=== PATIENT | female | born 1970 | race American Indian/Alaskan Native ===

== ENCOUNTER 2018-10-13 12:34 | Inpatient (IN) | payer MEDICAID, OTHER ==
[2018-10-13] MEDS ORDERED: NACL 0.9% 1000 ML 1,000 ML IV ONE (14:02)
[2018-10-13] MEDS ORDERED: SUBLIMAZE IV ONE ×2 (14:02→18:55)
[2018-10-13] MEDS ORDERED: ZOFRAN IV ONE (14:02)
--- NOTE | 2018-10-13 14:04 | Emergency Department Report ---
ED General Adult HPI - General Chief complaint: Abdominal Pain Stated complaint: STOMACH/BACK PAIN/VOMITING Time Seen by Provider: 10/13/18 13:49 Source: patient, RN notes reviewed Mode of arrival: Ambulatory Limitations: No Limitations - History of Present Illness Initial comments: This is a 48-year-old female who is not known to this provider previously, but does not have a local primary care doctor, reports that she is not . Surgical history includes right sided inguinal hernia repair, 25 years ago, and bilateral tubal ligation. The patient denies DVT, pulmonary embolus risk factors. The patient presents today with a complaint of nontraumatic bilateral abdominal upper quadrant abdominal pain, with associated back pain, nausea, vomiting, fatigue, decreased stool caliber, chest tightness, intermittent shortness of breath, present since 5:30 in the morning. Symptoms constant, radiating to the back, increasing with palpation, decreased with rest. Denies fevers, chills, positive lethargy, positive generalized weakness, denies irritative, obstructive urinary symptoms. Chest discomfort as subxiphoid, epigastric, does not radiate anywhere. No recent cardiac risk stratification that she is aware of. Positive family history of heart disease, CHF and her father. No recent aspirin use or cocaine use. -: Gradual Location: chest, abdomen Radiation: back Quality: other Consistency: other Improves with: other Worsens with: other Associated Symptoms: chest pain, loss of appetite, malaise, nausea/vomiting, weakness, other (reports multiple episodes of nausea, vomiting). denies: confusion, cough, diaphoresis, fever/chills, headaches, rash, seizure, shortness of breath, syncope - Related Data Allergies Allergy/AdvReac Type Severity Reaction Status Date / Time Penicillins Allergy Unknown Verified 10/13/18 12:44 ED Review of Systems ROS: Stated complaint: STOMACH/BACK PAIN/VOMITING Other details as noted in HPI Constitutional: malaise, other. denies: fever Eyes: denies: eye discharge ENT: denies: epistaxis Respiratory: denies: cough Cardiovascular: chest pain Gastrointestinal: abdominal pain, nausea, vomiting Genitourinary: denies: dysuria Musculoskeletal: denies: joint swelling Skin: denies: lesions Neurological: weakness Psychiatric: anxiety ED Past Medical Hx - Past Medical History Previous Medical History?: Yes Additional medical history: MVP - Surgical History Past Surgical History?: Yes Additional Surgical History: RIGHT INGUINAL HERNIA, TUBILIGATION - Social History Smoking Status: Never Smoker Substance Use Type: None ED Physical Exam - General Limitations: No Limitations General appearance: alert, anxious, in distress, obese - Head Head exam: Present: atraumatic, normocephalic - Eye Eye exam: Present: normal appearance, EOMI. Absent: nystagmus - ENT ENT exam: Present: normal exam, normal orophraynx, mucous membranes moist, normal external ear exam - Neck Neck exam: Present: normal inspection, full ROM. Absent: tenderness, meningismus - Respiratory Respiratory exam: Present: decreased breath sounds. Absent: respiratory distress, wheezes, rales, rhonchi, stridor - Cardiovascular Cardiovascular Exam: Present: normal rhythm, bradycardia, normal heart sounds. Absent: tachycardia, irregular rhythm, systolic murmur, diastolic murmur, rubs, gallop - GI/Abdominal GI/Abdominal exam: Present: soft, tenderness. Absent: distended, guarding, rebo und, rigid, pulsatile mass - Extremities Exam Extremities exam: Present: normal inspection, full ROM, other (2+ pulses noted in the bilateral upper extremities. There is no long bony tenderness. The compartments are soft. There is no palpable cord. There is negative Homans sign.). Absent: pedal edema, calf tenderness - Back Exam Back exam: Present: normal inspection, full ROM. Absent: tenderness, CVA tenderness (R), paraspinal tenderness, vertebral tenderness - Neurological Exam Neurological exam: Present: alert, oriented X3, normal gait, other (Extraocular movements intact. Tongue midline. No facial droop. Facial sensation intact to light touch in the V1, V2, V3 distribution bilaterally. 5 and 5 strength in 4 extremities.. Sensation is intact to light touch in 4 extremities.). Absent: motor sensory deficit - Psychiatric Psychiatric exam: Present: normal affect, normal mood - Skin Skin exam: Present: warm, dry, intact, normal color. Absent: rash ED Course Vital Signs 10/13/18 12:39 Temperature 97.8 F Pulse Rate 68 Respiratory 18 Rate Blood Pressure 165/90 O2 Sat by Pulse 100 Oximetry - Reevaluation(s) Reevaluation #1: 10/13/18 14:23 Differential diagnosis, including not limited to: GERD, gastritis, hiatal hernia, bowel obstruction, ileus, volvulus, acute coronary syndrome, pulmonary embolus, aortic disease, Assessment and plan: 48-year-old female with a primary complaint of upper abdominal pain, on oppose nausea and vomiting, subsequent chest discomfort, back discomfort, with reports no pulmonary embolus or DVT risk factors, with abnormal EKG. Patient is afebrile with reassuring vital signs, and appears uncomfortable. We will obtain appropriate screening laboratory studies, treat her symptoms, obtained CT scan of the chest, abdomen, pelvis, and we will reassess after initial data points. Reevaluation #2: 10/13/18 16:05 Laboratory studies reviewed and are appreciated. CT scan interpretation and performance pending. Reevaluation #3: 10/13/18 17:31 CT scan of the chest is negative for acute disease. CT scan of the abdomen and pelvis is pending interpretation. Reevaluation #4: 10/13/18 18:59 CT scan shows appendicitis without rupture. The patient endorses that the nature of her pain has changed, and that is now sharp and right-sided. She is asking for additional pain medication and nausea medication. She has no true allergic reaction to penicillins, only endorses that occasionally, and amoxicillin tablets are occasionally to "chalky" for her, which will cause her to gag, but she does not endorse true anaphylactic or anaphylactoid reaction to penicillins. She will be covered empirically with meropenem. Gen. surgery consult has been requested. Hospital physician has been paged. Reevaluation #5: 10/13/18 19:04 Dr Morton will see the patient; request patient remained in the emergency room, and he will call the OR crew. - Consultations Consultation #1: 10/13/18 19:18 Dr Hansen to admit - EJ/Peripheral Line Neck L Time Out Performed: Yes Indications: nurses unable to establis Skin Cleansed in Sterile Fashion: Yes Size: 20 Dressing Placed: Tegaderm Patient Tolerated Procedure: well ED Medical Decision Making - Lab Data Result diagrams: 10/13/18 14:38 10/13/18 14:38 Vital Signs 10/13/18 12:39 Temperature 97.8 F Pulse Rate 68 Respiratory 18 Rate Blood Pressure 165/90 O2 Sat by Pulse 100 Oximetry Lab Results 10/13/18 10/13/18 10/13/18 Range/Units 13:49 14:38 14:38 WBC 7.3 (4.5-11.0) K/mm3 RBC 4.33 (3.65-5.03) M/mm3 Hgb 12.7 (10.1-14.3) gm/dl Hct 38.3 (30.3-42.9) % MCV 89 (79-97) fl MCH 29 (28-32) pg MCHC 33 (30-34) % RDW 15.4 H (13.2-15.2) % Plt Count 195 (140-440) K/mm3 Lymph % (Auto) 10.8 L (13.4-35.0) % Mora % (Auto) 1.6 (0.0-7.3) % Eos % (Auto) 0.0 (0.0-4.3) % Baso % (Auto) 0.3 (0.0-1.8) % Lymph # 0.8 L (1.2-5.4) K/mm3 Mora # 0.1 (0.0-0.8) K/mm3 Eos # 0.0 (0.0-0.4) K/mm3 Baso # 0.0 (0.0-0.1) K/mm3 Seg Neutrophils % 87.3 H (40.0-70.0) % Seg Neutrophils # 6.4 (1.8-7.7) K/mm3 PT 13.2 (12.2-14.9) Sec. INR 0.96 (0.87-1.13) APTT 24.4 (24.2-36.6) Sec. Sodium (137-145) mmol/L Potassium (3.6-5.0) mmol/L Chloride (98-107) mmol/L Carbon Dioxide (22-30) mmol/L Anion Gap mmol/L BUN (7-17) mg/dL Creatinine (0.7-1.2) mg/dL Estimated GFR ml/min BUN/Creatinine Ratio % Glucose (65-100) mg/dL Calcium (8.4-10.2) mg/dL Magnesium (1.7-2.3) mg/dL Total Bilirubin (0.1-1.2) mg/dL AST (5-40) units/L ALT (7-56) units/L Alkaline Phosphatase (35-129) units/L Total Creatine Kinase (30-135) units/L Troponin T (0.00-0.029) ng/mL Total Protein (6.3-8.2) g/dL Albumin (3.9-5) g/dL Albumin/Globulin Ratio % Lipase (13-60) units/L HCG, Quant (0-4) mIU/mL Urine Color Yellow (Yellow) Urine Turbidity Clear (Clear) Urine pH 8.0 H (5.0-7.0) Ur Specific Loco 1.016 (1.003-1.030) Urine Protein 30 mg/dl (Negative) mg/dL Urine Glucose (UA) 50 (Negative) mg/dL Urine Ketones Neg (Negative) mg/dL Urine Blood Sm (Negative) Urine Nitrite Neg (Negative) Urine Bilirubin Neg (Negative) Urine Urobilinogen < 2.0 (<2.0) mg/dL Ur Leukocyte Esterase Tr (Negative) Urine WBC (Auto) 2.0 (0.0-6.0) /HPF Urine RBC (Auto) 11.0 (0.0-6.0) /HPF U Epithel Cells (Auto) 1.0 (0-13.0) /HPF Urine Bacteria (Auto) 2+ (Negative) /HPF Urine Mucus Few /HPF Blood Type Antibody Screen 10/13/18 10/13/18 10/13/18 Range/Units 14:38 14:38 14:38 WBC (4.5-11.0) K/mm3 RBC (3.65-5.03) M/mm3 Hgb (10.1-14.3) gm/dl Hct (30.3-42.9) % MCV (79-97) fl MCH (28-32) pg MCHC (30-34) % RDW (13.2-15.2) % Plt Count (140-440) K/mm3 Lymph % (Auto) (13.4-35.0) % Mora % (Auto) (0.0-7.3) % Eos % (Auto) (0.0-4.3) % Baso % (Auto) (0.0-1.8) % Lymph # (1.2-5.4) K/mm3 Mora # (0.0-0.8) K/mm3 Eos # (0.0-0.4) K/mm3 Baso # (0.0-0.1) K/mm3 Seg Neutrophils % (40.0-70.0) % Seg Neutrophils # (1.8-7.7) K/mm3 PT (12.2-14.9) Sec. INR (0.87-1.13) APTT (24.2-36.6) Sec. Sodium 139 (137-145) mmol/L Potassium 4.0 (3.6-5.0) mmol/L Chloride 102.4 (98-107) mmol/L Carbon Dioxide 24 (22-30) mmol/L Anion Gap 17 mmol/L BUN 8 (7-17) mg/dL Creatinine 0.9 (0.7-1.2) mg/dL Estimated GFR > 60 ml/min BUN/Creatinine Ratio 9 % Glucose 145 H (65-100) mg/dL Calcium 9.3 (8.4-10.2) mg/dL Magnesium 2.00 (1.7-2.3) mg/dL Total Bilirubin 0.40 (0.1-1.2) mg/dL AST 18 (5-40) units/L ALT 13 (7-56) units/L Alkaline Phosphatase 91 (35-129) units/L Total Creatine Kinase 235 H (30-135) units/L Troponin T < 0.010 (0.00-0.029) ng/mL Total Protein 7.9 (6.3-8.2) g/dL Albumin 4.5 (3.9-5) g/dL Albumin/Globulin Ratio 1.3 % Lipase 13 (13-60) units/L HCG, Quant 3.30 (0-4) mIU/mL Urine Color (Yellow) Urine Turbidity (Clear) Urine pH (5.0-7.0) Ur Specific Loco (1.003-1.030) Urine Protein (Negative) mg/dL Urine Glucose (UA) (Negative) mg/dL Urine Ketones (Negative) mg/dL Urine Blood (Negative) Urine Nitrite (Negative) Urine Bilirubin (Negative) Urine Urobilinogen (<2.0) mg/dL Ur Leukocyte Esterase (Negative) Urine WBC (Auto) (0.0-6.0) /HPF Urine RBC (Auto) (0.0-6.0) /HPF U Epithel Cells (Auto) (0-13.0) /HPF Urine Bacteria (Auto) (Negative) /HPF Urine Mucus /HPF Blood Type O POSITIVE Antibody Screen Negative - EKG Data -: EKG Interpreted by Me EKG shows normal: sinus rhythm Rate: bradycardia - EKG Data When compared to previous EKG there are: previous EKG unavailable 10/13/18 14:24 Bradycardia, 51 bpm, borderline left axis deviation, QTC within normal limits, right bundle branch block noted, abnormal EKG, T wave abnormalities, not consistent with ST elevation myocardial infarction. There is no prior EKG available for comparison. - Radiology Data Radiology results: pending Critical care attestation.: If time is entered above; I have spent that time in minutes in the direct care of this critically ill patient, excluding procedure time. ED Disposition Clinical Impression: Acute appendicitis Qualifiers: Acute appendicitis type: unspecified acute appendicitis type Qualified Code(s): K35.80 - Unspecified acute appendicitis Disposition: OP ADMIT IP TO THIS HOSP Is pt being admited?: Yes Condition: Good Instructions: Abdominal Pain (ED) Referrals: PRIMARY CARE, [Primary Care Provider] - 3-5 Days
[2018-10-13 14:18] LABS: Bacteria,Urine 2+ /HPF (Negative); Bilirubin,Urine NEG (Negative); Blood,Urine SM (Negative); Color,Urine Yellow (Yellow); Mucus,Urine FEW /HPF; Urobilinogen,Urine < 2.0 mg/dL (<2.0)
[2018-10-13] MEDS ORDERED: PEPCID IV ONE (14:24)
[2018-10-13 14:52] LABS: Basophils % (Auto) 0.3 % (0.0-1.8); Hematocrit 38.3 % (30.3-42.9); Hemoglobin 12.7 gm/dl (10.1-14.3); Lymphocytes # (Auto) 0.8 K/mm3 (1.2-5.4); Lymphocytes % (Auto) 10.8 % (13.4-35.0); Mean Corpuscular HGB Conc 33 % (30-34); Mean Corpuscular Volume 89 fl (79-97); Monocytes # (Auto) 0.1 K/mm3 (0.0-0.8); Monocytes % (Auto) 1.6 % (0.0-7.3); Platelet Count 195 K/mm3 (140-440); Red Blood Count 4.33 M/mm3 (3.65-5.03); Red Cell Distribution Width 15.4 % (13.2-15.2)
--- NOTE | 2018-10-13 14:52 | XRay Report ---
ABDOMINAL SERIES: History: Chest pain, abdominal pain, shortness of breath. Erect chest film shows no acute or significant changes involving the heart or lung vergara. There is no evidence of free air beneath the diaphragms. The gas pattern within the abdomen is unremarkable. There is no evidence of bowel dilatation, significant air-fluid levels, or masses. Organ shadows are unremarkable. IMPRESSION: Abdominal series within normal limits.
[2018-10-13 15:02] LABS: INR 0.96 (0.87-1.13)
[2018-10-13 15:03] LABS: Partial Thromboplastin Time 24.4 Sec. (24.2-36.6)
[2018-10-13 15:17] LABS: Alanine Aminotransferase 13 units/L (7-56); Albumin 4.5 g/dL (3.9-5); BUN/Creatinine Ratio 9; Blood Urea Nitrogen 8 mg/dL (7-17); Calcium 9.3 mg/dL (8.4-10.2); Hemolysis Index 26
--- NOTE | 2018-10-13 17:29 | Cat Scan Report ---
FINAL REPORT EXAM: CT ANGIO CHEST HISTORY: chest pain, abdominal pain, shortness of breath TECHNIQUE: Following administration of IV contrast axial helical imaging was performed through the c hest with sagittal and coronal reformatted images obtained. Comparison: None FINDINGS: There is no evidence of infiltrate, pneumothorax or pleural fluid collection. The trachea and bronchi are patent. The heart appears to be enlarged. The thoracic aorta is normal caliber. There is no evidence of intrathoracic adenopathy. The visualized portion the upper abdomen is unremarkable. The bony structures are unremarkable. IMPRESSION: 1. No evidence of an acute intrathoracic process. 2. The heart appears to be enlarged.
--- NOTE | 2018-10-13 18:50 | Cat Scan Report ---
FINAL REPORT EXAM: CT ABDOMEN PELVIS W CON HISTORY: chest pain, abdominal pain, shortness of breath TECHNIQUE: Following administration of oral and IV contrast axial helical imaging was performed thro [facility] the abdomen and pelvis with sagittal and coronal reformatted images obtained. Delayed axial helic al imaging was performed through the abdomen and pelvis. Comparison: CT chest also performed today FINDINGS: The lung bases are without infiltrate, pneumothorax or pleural fluid collection. The liver, spleen, kidneys and adrenal glands are unremarkable. Visualization detail of the pancreas is limited due to streak artifact created by a monitor lead in t he field of view. The gallbladder is moderately distended and unremarkable. The bowel is normal caliber. Most of the bowel is not opacified with GI contrast. However, GI contras t is demonstrated in the terminal ileum and cecum. The appendix is enlarged (14 millimeters) and contains appendicoliths. There is evidence of of edema in the cecal wall at the origin of the appendix. There is a small amount of free fluid in the pelvis. There is no evidence of pneumoperitoneum. The abdominal aorta is normal caliber. There is no evidence of pathologic intra-abdominal adenopathy by CT size criteria. The urinary bladder is moderately distended and unremarkable. The uterus and adnexal are unremarkable. The bony structures are unremarkable. IMPRESSION: 1. Evidence of acute appendicitis. 2. Small amount of free fluid in the pelvis.
[2018-10-13] MEDS ORDERED: REGLAN IV ONE (18:55)
[2018-10-13] MEDS ORDERED: MARCAINE 0.5% INFILTRATI ONE (19:57)
[2018-10-13] MEDS ORDERED: MARCAINE-EPI 0.5%-1:200,000 INFILTRATI ONE ×2 (19:57→21:10)
[2018-10-13] MEDS ORDERED: MERREM/NS 500 MG/50 ML 500 MG/50 ML BAG IV ONE (20:00)
--- NOTE | 2018-10-13 20:00 | Anesthesia Day of Surgery ---
Anesthesia Day of Surgery - Day of Surgery Patient Examined: Yes Patient H&P Reviewed: Yes Patient is NPO: Yes
[2018-10-13] MEDS ORDERED: PHENERGAN PR PRN (20:01)
[2018-10-13] MEDS ORDERED: ZOFRAN IV PRN ×2 (20:01→20:28)
[2018-10-13] MEDS ORDERED: DILAUDID IV PRN (20:01)
[2018-10-13] MEDS ORDERED: DEMEROL IV PRN (20:01)
--- NOTE | 2018-10-13 20:01 | Anesthesia Consultation ---
Anesthesia Consult and Med Hx Date of service: 10/13/18 - Airway Anesthetic Teeth Evaluation: Poor, Chipped ROM Head & Neck: Adequate Mental/Hyoid Distance: Adequate Mallampati Class: Class II Intubation Access Assessment: Probably Good - Pulmonary Exam CTA: Yes - Cardiac Exam Cardiac Exam: RRR - Pre-Operative Health Status ASA Pre-Surgery Classification: ASA2, Emergency Proposed Anesthetic Plan: General (h/o DVT, not on any blood thinners, GERD controlled, pt is NPO, no meds for HTN or DM)
[2018-10-13] MEDS ORDERED: ZEMURON IV ONE (20:15)
[2018-10-13] MEDS ORDERED: QUELICIN ONE (20:15)
[2018-10-13] MEDS ORDERED: XYLOCAINE MPF 2% ONE (20:15)
[2018-10-13] MEDS ORDERED: DIPRIVAN 10 MG/ML IV ONE (20:15)
[2018-10-13] MEDS ORDERED: DILAUDID ONE (20:15)
--- NOTE | 2018-10-13 20:19 | History and Physical Report ---
History of Present Illness Date of examination: 10/13/18 Date of admission: 10/13/2018 Chief complaint: Right lower quadrant pain since afternoon History of present illness: 48-year-old -[place] female with no significant past medical history and not on any medications comes in for right lower quadrant pain since 5:30 AM in the morning. Pain is about 10 on a scale of 1-10 associated with nausea. Vomiting 2. No diarrhea. No shortness of breath. Some nonspecific chest pain present. Which is resolved. Patient attributes it to acid reflux. No diapho resis no shortness of breath no palpitations. No exacerbating or relieving factors. No recent travel. Pain is sharp and 10 on 10. Nonradiating Past Medical History Previous Medical History?: Yes Additional medical history: MVP Surgical History Past Surgical History?: Yes Additional Surgical History: RIGHT INGUINAL HERNIA, TUBILIGATION Social History Smoking Status: Never Smoker Substance Use Type: None Family history Htn Review of Systems ROS: Stated complaint: STOMACH/BACK PAIN/VOMITING Other details as noted in HPI Constitutional: malaise, other. denies: fever Eyes: denies: eye discharge ENT: denies: epistaxis Respiratory: denies: cough Cardiovascular: chest pain Gastrointestinal: abdominal pain, nausea, vomiting Genitourinary: denies: dysuria Musculoskeletal: denies: joint swelling Skin: denies: lesions Neurological: weakness Psychiatric: anxiety Medications and Allergies Allergies Allergy/AdvReac Type Severity Reaction Status Date / Time Penicillins Allergy Unknown Verified 10/13/18 12:44 Active Meds: Active Medications Hydromorphone HCl (Dilaudid) 0.5 mg IV Q10MIN PRN PRN Reason: Pain , Severe (7-10) Stop: 10/13/18 23:59 Meropenem (Merrem/Ns 500 Mg/50 Ml) 500 mg in 50 mls @ 50 mls/hr IV ONCE ONE Stop: 10/13/18 20:59 Lactated Ringer's (Lactated Ringers) 1,000 mls @ 100 mls/hr IV DIRECT SHARA Meperidine HCl (Demerol) 25 mg IV ONCE PRN PRN Reason: Shivering Ondansetron HCl (Zofran) 4 mg IV ONCE PRN PRN Reason: Nausea And Vomiting Promethazine HCl (Phenergan) 25 mg ID ONCE PRN PRN Reason: Nausea And Vomiting Exam - Physical Exam Narrative exam: Lying in bed comfortably - Constitutional Vitals: Temp Pulse Resp BP Pulse Ox 99 F 68 18 163/62 98 10/13/18 18:54 10/13/18 12:39 10/13/18 12:39 10/13/18 19:30 10/13/18 19:30 General appearance: Present: no acute distress, well-nourished - EENT Eyes: Present: PERRL ENT: hearing intact, clear oral mucosa - Neck Neck: Present: supple, normal ROM - Respiratory Respiratory effort: normal Respiratory: bilateral: CTA - Cardiovascular Heart rate: 80 Rhythm: regular Heart Sounds: Present: S1 & S2. Absent: rub, click - Extremities Extremities: no ischemia, pulses intact, pulses symmetrical, No edema Peripheral Pulses: within normal limits - Abdominal General gastrointestinal: Present: soft, non-tender, non-distended, normal bowel sounds Localized gastrointestinal: tender: RLQ, guarding: RLQ, rebound: RLQ Female genitourinary: Present: normal - Rectal Rectal Exam: deferred - Integumentary Integumentary: Present: clear, warm, dry - Musculoskeletal Musculoskeletal: gait normal, strength equal bilaterally - Psychiatric Psychiatric: appropriate mood/affect, intact judgment & insight - Neurologic Neurologic: CNII-XII intact, moves all extremities - Allied Health Allied health notes reviewed: nursing, case management Results - Labs CBC & Chem 7: 10/13/18 14:38 10/13/18 14:38 Labs: Laboratory Last Values WBC 7.3 K/mm3 (4.5-11.0) 10/13/18 14:38 RBC 4.33 M/mm3 (3.65-5.03) 10/13/18 14:38 Hgb 12.7 gm/dl (10.1-14.3) 10/13/18 14:38 Hct 38.3 % (30.3-42.9) 10/13/18 14:38 MCV 89 fl (79-97) 10/13/18 14:38 MCH 29 pg (28-32) 10/13/18 14:38 MCHC 33 % (30-34) 10/13/18 14:38 RDW 15.4 % (13.2-15.2) H 10/13/18 14:38 Plt Count 195 K/mm3 (140-440) 10/13/18 14:38 Lymph % (Auto) 10.8 % (13.4-35.0) L 10/13/18 14:38 Jenkins % (Auto) 1.6 % (0.0-7.3) 10/13/18 14:38 Eos % (Auto) 0.0 % (0.0-4.3) 10/13/18 14:38 Baso % (Auto) 0.3 % (0.0-1.8) 10/13/18 14:38 Lymph # 0.8 K/mm3 (1.2-5.4) L 10/13/18 14:38 Jenkins # 0.1 K/mm3 (0.0-0.8) 10/13/18 14:38 Eos # 0.0 K/mm3 (0.0-0.4) 10/13/18 14:38 Baso # 0.0 K/mm3 (0.0-0.1) 10/13/18 14:38 Seg Neutrophils % 87.3 % (40.0-70.0) H 10/13/18 14:38 Seg Neutrophils # 6.4 K/mm3 (1.8-7.7) 10/13/18 14:38 PT 13.2 Sec. (12.2-14.9) 10/13/18 14:38 INR 0.96 (0.87-1.13) 10/13/18 14:38 APTT 24.4 Sec. (24.2-36.6) 10/13/18 14:38 Sodium 139 mmol/L (137-145) 10/13/18 14:38 Potassium 4.0 mmol/L (3.6-5.0) 10/13/18 14:38 Chloride 102.4 mmol/L (98-107) 10/13/18 14:38 Carbon Dioxide 24 mmol/L (22-30) 10/13/18 14:38 Anion Gap 17 mmol/L 10/13/18 14:38 BUN 8 mg/dL (7-17) 10/13/18 14:38 Creatinine 0.9 mg/dL (0.7-1.2) 10/13/18 14:38 Estimated GFR > 60 ml/min 10/13/18 14:38 BUN/Creatinine Ratio 9 % 10/13/18 14:38 Glucose 145 mg/dL (65-100) H 10/13/18 14:38 Calcium 9.3 mg/dL (8.4-10.2) 10/13/18 14:38 Magnesium 2.00 mg/dL (1.7-2.3) 10/13/18 14:38 Total Bilirubin 0.40 mg/dL (0.1-1.2) 10/13/18 14:38 AST 18 units/L (5-40) 10/13/18 14:38 ALT 13 units/L (7-56) 10/13/18 14:38 Alkaline Phosphatase 91 units/L (35-129) 10/13/18 14:38 Total Creatine Kinase 235 units/L (30-135) H 10/13/18 14:38 Troponin T < 0.010 ng/mL (0.00-0.029) 10/13/18 14:38 Total Protein 7.9 g/dL (6.3-8.2) 10/13/18 14:38 Albumin 4.5 g/dL (3.9-5) 10/13/18 14:38 Albumin/Globulin Ratio 1.3 % 10/13/18 14:38 Lipase 13 units/L (13-60) 10/13/18 14:38 HCG, Quant 3.30 mIU/mL (0-4) 10/13/18 14:38 Urine Color Yellow (Yellow) 10/13/18 13:49 Urine Turbidity Clear (Clear) 10/13/18 13:49 Urine pH 8.0 (5.0-7.0) H 10/13/18 13:49 Ur Specific Lydia 1.016 (1.003-1.030) 10/13/18 13:49 Urine Protein 30 mg/dl mg/dL (Negative) 10/13/18 13:49 Urine Glucose (UA) 50 mg/dL (Negative) 10/13/18 13:49 Urine Ketones Neg mg/dL (Negative) 10/13/18 13:49 Urine Blood Sm (Negative) 10/13/18 13:49 Urine Nitrite Neg (Negative) 10/13/18 13:49 Urine Bilirubin Neg (Negative) 10/13/18 13:49 Urine Urobilinogen < 2.0 mg/dL (<2.0) 10/13/18 13:49 Ur Leukocyte Esterase Tr (Negative) 10/13/18 13:49 Urine WBC (Auto) 2.0 /HPF (0.0-6.0) 10/13/18 13:49 Urine RBC (Auto) 11.0 /HPF (0.0-6.0) 10/13/18 13:49 U Epithel Cells (Auto) 1.0 /HPF (0-13.0) 10/13/18 13:49 Urine Bacteria (Auto) 2+ /HPF (Negative) 10/13/18 13:49 Urine Mucus Few /HPF 10/13/18 13:49 Blood Type O POSITIVE 10/13/18 14:38 Antibody Screen Negative 10/13/18 14:38 - Imaging and Cardiology EKG: report reviewed (sinus bradycardia heart rate of 51/m no acute ST-T wave changes EKG interpreted by me) Imaging and Cardiology: CT abdomen and pelvis with contrast Appendix last 14 mm in size and contains appendicoliths. 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 Patient is kept nothing by mouth Dilaudid 0.5-1 mg every 3 when necessary Zofran 4 mg every 3 when necessary for nausea vomiting (3) DVT prophylaxis Current Visit: Yes Status: Acute Plan to address problem: Lovenox 40 mg subcutaneous daily from tomorrow night and GI prophylaxis
[2018-10-13] MEDS ORDERED: LACTATED RINGERS 1,000 ML ONE (20:20)
[2018-10-13] MEDS ORDERED: SODIUM CHLORIDE FLUSH SYRINGE 10 ML IV PRN (20:28)
[2018-10-13] MEDS ORDERED: REGLAN IV PRN (20:28)
[2018-10-13] MEDS ORDERED: D5NS 1,000 ML IV SCH (21:00)
[2018-10-13] MEDS ORDERED: LACTATED RINGERS 1,000 ML IV SCH (21:00)
[2018-10-13] MEDS ORDERED: ROBINUL ONE ×2 (21:13→21:14)
[2018-10-13] MEDS ORDERED: BLOXIVERZ ONE (21:13)
[2018-10-13] MEDS ORDERED: ZOFRAN ONE (21:17)
[2018-10-13] MEDS ORDERED: MORPHINE IV PRN (21:18)
--- NOTE | 2018-10-13 21:45 | Operative Report ---
PREOPERATIVE DIAGNOSIS: Rule out appendicitis. POSTOPERATIVE DIAGNOSIS: Rule out appendicitis. PROCEDURE: Laparoscopic appendectomy. SURGEON: Hernandez Morton MD ANESTHESIA: General. ESTIMATED BLOOD LOSS: Minimal. DRAINAGE: No drains. COMPLICATIONS: None. PROCEDURE IN DETAIL: The patient was taken to the operating room, prepped and draped in the usual sterile fashion. A Veress needle was inserted and CO2 insufflation begun. A 5 mm trocar was then inserted and camera inserted. All other trocars were inserted under direct visualization. The patient was then placed in a steep Trendelenburg left lateral decubitus position. Attention was then focused to the right lower quadrant where the cecum was identified and the tenia followed down to the inflamed appendix. The distal third of the appendix was " as described on the CT. The mesoappendix was secured with a Harmonic scalpel. The base of the appendix was then transected and secured with the Endo-JEAN CLAUDE. Staple line was then carefully inspected and noted to be intact. No evidence of any bleeding or leakage noted. Appendix was then placed in the Endopouch and brought out through the infraumbilical port. The fascia at this site was closed with a [id number] 0 Vicryl suture. The repair was inspected through one of the lateral 5 mm ports to assure no evidence of entrapment of bowel or omentum, none were seen. The other 5 mm ports were then removed under direct visualization. No bleeding or oozing was noted. The last 5 mm port was then used to expel the CO2 and the trocar removed. The skin at all port sites was closed with subcuticular 4-0 Vicryl. A 0.5% Marcaine was infiltrated over the port site for postoperative pain relief. Steri-Strips, 2 x 2 and Tegaderms were applied. Abdominal binder will also be placed. The patient tolerated the procedure well and left the OR in stable condition. JOB# [id number] MAGDI/DARIUS
[2018-10-13] MEDS ORDERED: ZOSYN/NS 4.5GM/100ML 4.5 GM/100 ML VIAL IV SCH (22:00)
[2018-10-13] MEDS: D5/0.45NS 1,000 ML IV SCH (23:50)
[2018-10-13] MEDS: FLAGYL 500 MG/100 ML 500 MG/100 ML BAG IV SCH (23:50)
[2018-10-13] MEDS: PEPCID IV SCH (23:51)
[2018-10-13] MEDS: SODIUM CHLORIDE FLUSH SYRINGE 10 ML IV SCH (23:52)
[2018-10-14] MEDS: ROCEPHIN/NS 2 GM/100 ML 2 GM/100 ML BAG IV SCH ×2 (01:23→21:48)
--- NOTE | 2018-10-14 04:11 | Consultation ---
REASON FOR CONSULTATION: Rule out appendicitis. HISTORY OF PRESENT ILLNESS: The patient is a pleasant 48-year-old female, who presents to Emergency Room with recent onset of nausea and vomiting as well as abdominal pain. The patient states her abdominal pain initially was epigastric, but has since radiated to the right lower quadrant. PAST MEDICAL HISTORY: Mitral valve prolapse. PAST SURGICAL HISTORY: Status post right inguinal hernia repair and bilateral tubal ligation. ALLERGIES: ALLERGIC TO PENICILLIN, which causes " The patient states that she can take amoxicillin. MEDICATIONS: She takes currently takes no medications. FAMILY HISTORY: Negative. SOCIAL HISTORY: Denies any smoking or drinking. REVIEW OF SYSTEMS: Noncontributory. PHYSICAL EXAMINATION: GENERAL: At this time reveals the patient to be awake, alert, cooperative, in moderate discomfort, but no acute distress. VITAL SIGNS: Show her to be running a low-grade temperature of 99, blood pressure is 163/62, pulse of 68 and respirations of 18. ABDOMEN: Examination of the abdomen reveals small infraumbilical scar consistent with tubal ligation. The abdomen itself is soft. There is, however, localized right lower quadrant tenderness with mild guarding. LABORATORY DATA: Lab work at present includes a CBC, which shows a white count of 7.3, H and H are 12 and 38. Coagulation studies including PT, PTT and INR are normal. Electrolytes are also within normal limits. LFTs are also normal. Lipase is normal at 13. CT scan of the abdomen has been performed, whose findings are described. The appendix to be enlarged and containing an appendicolith. There is also evidence of edema in the cecal wall at the origin of the appendix. All these signs are consistent with acute appendicitis. IMPRESSION: At this time is that of a 48-year-old relatively healthy female, rule out acute appendicitis. PLAN: The plan is to proceed with laparoscopic appendectomy, possible open appendectomy. Risk, indication, and complications have been reviewed with the patient, who understands and has signed her consent. JOB# [id number] MAGDI/DARIUS
[2018-10-14 07:14] LABS: Basophils # (Auto) 0.1 K/mm3 (0.0-0.1); Basophils % (Auto) 0.7 % (0.0-1.8); Eosinophils % (Auto) 0.4 % (0.0-4.3); Hemoglobin 12.9 gm/dl (10.1-14.3); Lymphocytes # (Auto) 2.2 K/mm3 (1.2-5.4); Lymphocytes % (Auto) 26.4 % (13.4-35.0); Mean Corpuscular HGB Conc 33 % (30-34); Mean Corpuscular Volume 89 fl (79-97); Monocytes # (Auto) 0.5 K/mm3 (0.0-0.8); Monocytes % (Auto) 6.6 % (0.0-7.3); Red Blood Count 4.38 M/mm3 (3.65-5.03); Red Cell Distribution Width 15.3 % (13.2-15.2)
[2018-10-14 07:31] LABS: Alanine Aminotransferase 13 units/L (7-56); Albumin 3.8 g/dL (3.9-5); BUN/Creatinine Ratio 7; Blood Urea Nitrogen 7 mg/dL (7-17); Hemolysis Index 64
[2018-10-14] MEDS: DILAUDID IV PRN (07:34)
[2018-10-14] MEDS: FLAGYL 500 MG/100 ML 500 MG/100 ML BAG IV SCH ×3 (07:35→21:47)
[2018-10-14] MEDS: ZOFRAN IV PRN ×3 (07:42→20:37)
[2018-10-14 08:31] LABS: Platelet Count 102 K/mm3 (140-440)
[2018-10-14] MEDS: D5/0.45NS 1,000 ML IV SCH (11:03)
[2018-10-14] MEDS: PEPCID IV SCH ×2 (11:06→21:47)
[2018-10-14] MEDS: LEVAQUIN 500MG/100ML 500 MG/100 ML BAG IV SCH (11:08)
[2018-10-14] MEDS: SODIUM CHLORIDE FLUSH SYRINGE 10 ML IV SCH ×2 (11:11→21:59)
--- NOTE | 2018-10-14 12:08 | Consultation ---
History of Present Illness Consult date: 10/14/18 Requesting physician: WU NGUYEN Consult reason: other (abnormal ekg) History of present illness: The pt is a 48-year-old -[place] female with a past medical history of reported mitral valve prolapse and HTN (does not regularly see doctors) and not on any medications who presented with c/o nausea, vomiting and right lower quadrant pain since 5:30 AM on the morning of admission. She has been diagnosed with acute appendicitis. She was noted to have abnormal ECG and thus cardiology has been consulted. ECG demonstrates SR with RBBB. No prior ECGs available for comparison. Pt denies any knowledge of abnormal ECG in the past. Pt denies any chest pain, palpitations, diaphoresis, dizziness or syncope. She did experience a bout of SOB yesterday while in triage when she was experiencing severe RLQ abdominal pain. Past History Past Medical History: hypertension, other (? MVP) Medications and Allergies Allergies Allergy/AdvReac Type Severity Reaction Status Date / Time Penicillins Allergy Unknown Verified 10/13/18 12:44 Active Meds: Active Medications Acetaminophen (Tylenol) 650 mg PO Q4H PRN PRN Reason: Pain MILD(1-3)/Fever >100.5/BELLO Famotidine (Pepcid) 20 mg IV BID SHARA Last Admin: 10/14/18 11:06 Dose: 20 mg Documented by: Hydromorphone HCl (Dilaudid) 0.5 mg IV Q3H PRN PRN Reason: Pain , Severe (7-10) Last Admin: 10/14/18 07:34 Dose: 0.5 mg Documented by: Lactated Ringer's (Lactated Ringers) 1,000 mls @ 100 mls/hr IV DIRECT SHARA Ceftriaxone Sodium (Rocephin/Ns 2 Gm/100 Ml) 2 gm in 100 mls @ 200 mls/hr IV Q24H SHARA Last Admin: 10/14/18 01:23 Dose: 200 mls/hr Documented by: Dextrose/Sodium Chloride (D5/0.45ns) 1,000 mls @ 125 mls/hr IV DIRECT SHARA Last Admin: 10/14/18 11:03 Dose: 125 mls/hr Documented by: Levofloxacin/Dextrose (Levaquin 500mg/100ml) 500 mg in 100 mls @ 100 mls/hr IV Q24HR SHARA; Protocol Stop: 10/19/18 09:59 Last Admin: 10/14/18 11:08 Dose: 100 mls/hr Documented by: Metronidazole (Flagyl 500 Mg/100 Ml) 500 mg in 100 mls @ 100 mls/hr IV Q8HR [facility]; Protocol Stop: 10/18/18 21:59 Last Admin: 10/14/18 07:35 Dose: 100 mls/hr Documented by: Meperidine HCl (Demerol) 25 mg IV ONCE PRN PRN Reason: Shivering Metoclopramide HCl (Reglan) 10 mg IV Q6H PRN PRN Reason: Nausea And Vomiting Morphine Sulfate (Morphine) 4 mg IV Q3H PRN PRN Reason: Pain , Severe (7-10) Last Admin: 10/14/18 11:03 Dose: 4 mg Documented by: Ondansetron HCl (Zofran) 4 mg IV Q4H PRN PRN Reason: N/V unrelieved by Reglan Last Admin: 10/14/18 07:42 Dose: 4 mg Documented by: Promethazine HCl (Phenergan) 25 mg UT ONCE PRN PRN Reason: Nausea And Vomiting Sodium Chloride (Sodium Chloride Flush Syringe 10 Ml) 10 ml IV BID [facility] Last Admin: 10/14/18 11:11 Dose: 10 ml Documented by: Sodium Chloride (Sodium Chloride Flush Syringe 10 Ml) 10 ml IV PRN PRN PRN Reason: LINE FLUSH Review of Systems Constitutional: no weight loss, no weight gain, no fever, no chills, no sweats Ears, nose, mouth and throat: no ear pain, no nose pain, no sinus pressure, no sinus pain Cardiovascular: shortness of breath, high blood pressure, no chest pain, no o rthopnea, no palpitations, no rapid/irregular heart beat, no edema, no syncope, no lightheadedness, no dyspnea on exertion, no leg edema Respiratory: shortness of breath, no cough, no dyspnea on exertion, no congestion, no wheezing, no pain on inspiration Gastrointestinal: abdominal pain, nausea, vomiting, no diarrhea, no constipation, no change in bowel habits, no hematemesis, no coffee ground emesis, no BRBPR, no melena, no hematochezia Genitourinary Female: no pelvic pain, no flank pain, no dysuria, no urinary frequency, no urgency Musculoskeletal: no neck stiffness, no neck pain, no shooting arm pain, no arm numbness/tingling, no low back pain Integumentary: no rash, no pruritis, no redness, no sores, no wounds Neurological: no head injury, no paralysis, no weakness, no parathesias, no numbness, no tingling, no seizures, no syncope Psychiatric: no anxiety Endocrine: no cold intolerance, no heat intolerance Hematologic/Lymphatic: no easy bruising, no easy bleeding Allergic/Immunologic: no urticaria, no wheezing, no persistent infections Physical Examination Vital Signs Temp Pulse Resp BP Pulse Ox 97.8 F 68 18 165/90 100 10/13/18 12:39 10/13/18 12:39 10/13/18 12:39 10/13/18 12:39 10/13/18 12:39 General appearance: no acute distress HEENT: Positive: PERRL, Normocephaly, Mucus Membranes Moist Neck: Positive: neck supple, trachea midline Cardiac: Positive: Reg Rate and Rhythm, S1/S2 Lungs: Positive: clear to auscultation Neuro: Positive: Grossly Intact Abdomen: Positive: Tender Skin: Negative: Rash Musculoskeletal: No Pain Extremities: Absent: edema Results 10/14/18 06:45 10/14/18 06:45 Cardiac Enzymes 10/13/18 10/14/18 Range/Units 14:38 06:45 AST 18 33 (5-40) units/L Coagulation 10/13/18 Range/Units 14:38 PT 13.2 (12.2-14.9) Sec. INR 0.96 (0.87-1.13) APTT 24.4 (24.2-36.6) Sec. CBC 10/13/18 10/14/18 Range/Units 14:38 06:45 WBC 7.3 8.3 (4.5-11.0) K/mm3 RBC 4.33 4.38 (3.65-5.03) M/mm3 Hgb 12.7 12.9 (10.1-14.3) gm/dl Hct 38.3 39.0 (30.3-42.9) % Plt Count 195 102 L (140-440) K/mm3 Lymph # 0.8 L 2.2 (1.2-5.4) K/mm3 [place] # 0.1 0.5 (0.0-0.8) K/mm3 Eos # 0.0 0.0 (0.0-0.4) K/mm3 Baso # 0.0 0.1 (0.0-0.1) K/mm3 Comprehensive Metabolic Panel 10/13/18 10/14/18 Range/Units 14:38 06:45 Sodium 139 140 (137-145) mmol/L Potassium 4.0 4.1 (3.6-5.0) mmol/L Chloride 102.4 103.4 (98-107) mmol/L Carbon Dioxide 24 23 (22-30) mmol/L BUN 8 7 (7-17) mg/dL Creatinine 0.9 1.0 (0.7-1.2) mg/dL Glucose 145 H 115 H (65-100) mg/dL Calcium 9.3 9.0 (8.4-10.2) mg/dL AST 18 33 (5-40) units/L ALT 13 13 (7-56) units/L Alkaline Phosphatase 91 79 (35-129) units/L Total Protein 7.9 6.8 (6.3-8.2) g/dL Albumin 4.5 3.8 L (3.9-5) g/dL - Imaging and Cardiology Echo: pending EKG: report reviewed, image reviewed EKG interpretations - Telemetry EKG Rhythm: Sinus Rhythm - EKG Sinus rhythms and dysrhythmias: sinus rhythm AV and intraventricular conduction: right bundle branch block Assessment and Plan Currently stable cardiac status. ECG demonstrates SR with RBBB, unknown duration of RBBB as no prior ECGs available for comparison. Obtain echo. Follow general surgery recs. The patient has been seen in conjunction with Dr. Daniel who agrees with the assessment and plan of care. - Patient Problems (1) Acute appendicitis Current Visit: Yes Status: Acute Qualifiers: Acute appendicitis type: unspecified acute appendicitis type Qualified Code(s): K35.80 - Unspecified acute appendicitis (2) Right bundle branch block Current Visit: Yes Status: Acute (3) HTN (hypertension) Current Visit: Yes Status: Chronic (4) History of mitral valve prolapse Current Visit: Yes Status: Suspected
--- NOTE | 2018-10-14 13:29 | Progress Note ---
Assessment and Plan POD # 0 Pt c/o incisional pain. neg flatus Abd soft. incisional tenderness -BS stable ileus ice chips and po meds encourage ambulation Selected Entries 10/14/18 10/14/18 03:20 09:13 Temperature 98.8 F Pulse Rate 61 Respiratory 17 Rate Blood Pressure 104/43 [Left] Laboratory Tests 10/13/18 10/14/18 10/14/18 14:38 06:45 06:45 WBC 7.3 8.3 Hgb 12.7 12.9 Hct 38.3 39.0 Sodium 140 Potassium 4.1 Chloride 103.4 Carbon Dioxide 23 BUN 7 Creatinine 1.0 Objective Vital Signs - 12hr 10/14/18 10/14/18 03:20 09:13 Temperature 98.2 F 98.8 F Pulse Rate 61 18 L Respiratory 17 18 Rate Blood Pressure 131/68 Blood Pressure 104/43 [Left] O2 Sat by Pulse 100 95 Oximetry - Labs 10/14/18 06:45 10/14/18 06:45 Diabetes panel 10/13/18 10/13/18 10/14/18 Range/Units 14:38 20:36 06:45 Sodium 139 140 (137-145) mmol/L Potassium 4.0 4.1 (3.6-5.0) mmol/L Chloride 102.4 103.4 (98-107) mmol/L Carbon Dioxide 24 23 (22-30) mmol/L BUN 8 7 (7-17) mg/dL Creatinine 0.9 1.0 (0.7-1.2) mg/dL Glucose 145 H 115 H (65-100) mg/dL Hemoglobin A1c 6.6 H (4-6) % Calcium 9.3 9.0 (8.4-10.2) mg/dL AST 18 33 (5-40) units/L ALT 13 13 (7-56) units/L Alkaline Phosphatase 91 79 (35-129) units/L Total Protein 7.9 6.8 (6.3-8.2) g/dL Albumin 4.5 3.8 L (3.9-5) g/dL Calcium panel 10/13/18 10/14/18 Range/Units 14:38 06:45 Calcium 9.3 9.0 (8.4-10.2) mg/dL Albumin 4.5 3.8 L (3.9-5) g/dL Pituitary panel 10/13/18 10/14/18 Range/Units 14:38 06:45 Sodium 139 140 (137-145) mmol/L Potassium 4.0 4.1 (3.6-5.0) mmol/L Chloride 102.4 103.4 (98-107) mmol/L Carbon Dioxide 24 23 (22-30) mmol/L BUN 8 7 (7-17) mg/dL Creatinine 0.9 1.0 (0.7-1.2) mg/dL Glucose 145 H 115 H (65-100) mg/dL Calcium 9.3 9.0 (8.4-10.2) mg/dL Adrenal panel 10/13/18 10/14/18 Range/Units 14:38 06:45 Sodium 139 140 (137-145) mmol/L Potassium 4.0 4.1 (3.6-5.0) mmol/L Chloride 102.4 103.4 (98-107) mmol/L Carbon Dioxide 24 23 (22-30) mmol/L BUN 8 7 (7-17) mg/dL Creatinine 0.9 1.0 (0.7-1.2) mg/dL Glucose 145 H 115 H (65-100) mg/dL Calcium 9.3 9.0 (8.4-10.2) mg/dL Total Bilirubin 0.40 0.30 (0.1-1.2) mg/dL AST 18 33 (5-40) units/L ALT 13 13 (7-56) units/L Alkaline Phosphatase 91 79 (35-129) units/L Total Protein 7.9 6.8 (6.3-8.2) g/dL Albumin 4.5 3.8 L (3.9-5) g/dL
[2018-10-14] MEDS: NORCO 5/325 PO PRN (15:05)
--- NOTE | 2018-10-14 20:18 | Progress Note ---
Assessment and Plan Assessment and plan: 48-year-old -[place] female with no significant past medical history and not on any medications comes in for right lower quadrant pain since 5:30 AM in the morning. Pain is about 10 on a scale of 1-10 associated with nausea. Vomiting 2. No diarrhea. No shortness of breath. Some nonspecific chest pain present. Which is resolved. Patient attributes it to acid reflux. No diaphoresis no shortness of breath no palpitations. No exacerbating or relieving factors. No recent travel. Pain is sharp and 10 on 10. Nonradiating Past Medical History MVP Problems Acute appendicitis ileus elevated BP Plan sp Appy 10/14 cont abx ADAT per surgery -monitor BP, no meds for now, llikely elevated due to acute illness, unclear if she has chronic HTN dvt ppx- chemical History Interval history: Review of systems Constitutional: No fevers, no malaise, no joint pains CVS: No chest pain, no orthopnea, no dyspnea on exertion, no pedal edema GI: abdominal pain is improved, no diarrhea, no vomiting, no constipation Respiratory: No shortness of breath, no wheezing, no coughing Hospitalist Physical - Physical exam Narrative exam: General.: Appears well, no distress, nontoxic HEENT: Moist mucous membranes, extraocular muscles intact, no lymphadenopathy Neck: supple Cardiac: S1-S2 heard Lungs: clear to auscultation bilaterally Abdomen: soft , nontender, nondistended, bowel sounds positive Extremities: no edema clubbing or cyanosis Skin: no rash or lesions Neurologic: no gross focal deficits Psych: appropriate behavior, appropriate mood, corporative, judgment intact - Constitutional Vitals: Temp Pulse Resp BP Pulse Ox 98.8 F 18 L 18 104/43 95 10/14/18 09:13 10/14/18 09:13 10/14/18 09:13 10/14/18 09:13 10/14/18 09:13 General appearance: Present: no acute distress Results - Labs CBC & Chem 7: 10/14/18 06:45 10/14/18 06:45 Labs: Laboratory Last Values WBC 8.3 K/mm3 (4.5-11.0) 10/14/18 06:45 RBC 4.38 M/mm3 (3.65-5.03) 10/14/18 06:45 Hgb 12.9 gm/dl (10.1-14.3) 10/14/18 06:45 Hct 39.0 % (30.3-42.9) 10/14/18 06:45 MCV 89 fl (79-97) 10/14/18 06:45 MCH 29 pg (28-32) 10/14/18 06:45 MCHC 33 % (30-34) 10/14/18 06:45 RDW 15.3 % (13.2-15.2) H 10/14/18 06:45 Plt Count 102 K/mm3 (140-440) L 10/14/18 06:45 Lymph % (Auto) 26.4 % (13.4-35.0) 10/14/18 06:45 [place] % (Auto) 6.6 % (0.0-7.3) 10/14/18 06:45 Eos % (Auto) 0.4 % (0.0-4.3) 10/14/18 06:45 Baso % (Auto) 0.7 % (0.0-1.8) 10/14/18 06:45 Lymph # 2.2 K/mm3 (1.2-5.4) 10/14/18 06:45 [place] # 0.5 K/mm3 (0.0-0.8) 10/14/18 06:45 Eos # 0.0 K/mm3 (0.0-0.4) 10/14/18 06:45 Baso # 0.1 K/mm3 (0.0-0.1) 10/14/18 06:45 Seg Neutrophils % 65.9 % (40.0-70.0) 10/14/18 06:45 Seg Neutrophils # 5.5 K/mm3 (1.8-7.7) 10/14/18 06:45 PT 13.2 Sec. (12.2-14.9) 10/13/18 14:38 INR 0.96 (0.87-1.13) 10/13/18 14:38 APTT 24.4 Sec. (24.2-36.6) 10/13/18 14:38 Sodium 140 mmol/L (137-145) 10/14/18 06:45 Potassium 4.1 mmol/L (3.6-5.0) 10/14/18 06:45 Chloride 103.4 mmol/L (98-107) 10/14/18 06:45 Carbon Dioxide 23 mmol/L (22-30) 10/14/18 06:45 Anion Gap 18 mmol/L 10/14/18 06:45 BUN 7 mg/dL (7-17) 10/14/18 06:45 Creatinine 1.0 mg/dL (0.7-1.2) 10/14/18 06:45 Estimated GFR > 60 ml/min 10/14/18 06:45 BUN/Creatinine Ratio 7 % 10/14/18 06:45 Glucose 115 mg/dL (65-100) H 10/14/18 06:45 Hemoglobin A1c 6.6 % (4-6) H 10/13/18 20:36 Calcium 9.0 mg/dL (8.4-10.2) 10/14/18 06:45 Magnesium 2.00 mg/dL (1.7-2.3) 10/13/18 14:38 Total Bilirubin 0.30 mg/dL (0.1-1.2) 10/14/18 06:45 AST 33 units/L (5-40) 10/14/18 06:45 ALT 13 units/L (7-56) 10/14/18 06:45 Alkaline Phosphatase 79 units/L (35-129) 10/14/18 06:45 Total Creatine Kinase 235 units/L (30-135) H 10/13/18 14:38 Troponin T < 0.010 ng/mL (0.00-0.029) 10/13/18 14:38 Total Protein 6.8 g/dL (6.3-8.2) 10/14/18 06:45 Albumin 3.8 g/dL (3.9-5) L 10/14/18 06:45 Albumin/Globulin Ratio 1.3 % 10/14/18 06:45 Lipase 13 units/L (13-60) 10/13/18 14:38 HCG, Quant 3.30 mIU/mL (0-4) 10/13/18 14:38 Urine Color Yellow (Yellow) 10/13/18 13:49 Urine Turbidity Clear (Clear) 10/13/18 13:49 Urine pH 8.0 (5.0-7.0) H 10/13/18 13:49 Ur Specific [place] 1.016 (1.003-1.030) 10/13/18 13:49 Urine Protein 30 mg/dl mg/dL (Negative) 10/13/18 13:49 Urine Glucose (UA) 50 mg/dL (Negative) 10/13/18 13:49 Urine Ketones Neg mg/dL (Negative) 10/13/18 13:49 Urine Blood Sm (Negative) 10/13/18 13:49 Urine Nitrite Neg (Negative) 10/13/18 13:49 Urine Bilirubin Neg (Negative) 10/13/18 13:49 Urine Urobilinogen < 2.0 mg/dL (<2.0) 10/13/18 13:49 Ur Leukocyte Esterase Tr (Negative) 10/13/18 13:49 Urine WBC (Auto) 2.0 /HPF (0.0-6.0) 10/13/18 13:49 Urine RBC (Auto) 11.0 /HPF (0.0-6.0) 10/13/18 13:49 U Epithel Cells (Auto) 1.0 /HPF (0-13.0) 10/13/18 13:49 Urine Bacteria (Auto) 2+ /HPF (Negative) 10/13/18 13:49 Urine Mucus Few /HPF 10/13/18 13:49 Blood Type O POSITIVE 10/13/18 14:38 Antibody Screen Negative 10/13/18 14:38
[2018-10-15] MEDS: FLAGYL 500 MG/100 ML 500 MG/100 ML BAG IV SCH ×3 (06:57→21:16)
[2018-10-15] MEDS: LEVAQUIN 500MG/100ML 500 MG/100 ML BAG IV SCH (09:02)
[2018-10-15] MEDS: PEPCID IV SCH ×2 (09:02→21:17)
[2018-10-15] MEDS: SODIUM CHLORIDE FLUSH SYRINGE 10 ML IV SCH ×2 (09:03→21:16)
--- NOTE | 2018-10-15 10:55 | Progress Note ---
Assessment and Plan Currently stable cardiac status. ECG demonstrates SR with RBBB, unknown duration of RBBB as no prior ECGs available for comparison. Obtain echo. Follow general surgery recs. The patient has been seen in conjunction with Dr. Daniel who agrees with the assessment and plan of care. - Patient Problems (1) Acute appendicitis Current Visit: Yes Status: Acute Qualifiers: Acute appendicitis type: unspecified acute appendicitis type Qualified Code(s): K35.80 - Unspecified acute appendicitis (2) Right bundle branch block Current Visit: Yes Status: Acute (3) HTN (hypertension) Current Visit: Yes Status: Chronic (4) History of mitral valve prolapse Current Visit: Yes Status: Suspected Subjective Date of service: 10/15/18 Principal diagnosis: acute appendicitis; abnormal ECG Interval history: pt resting in bed, s/p surgery yesterday. states she is feeling better today. Objective Last Vital Signs Temp 99.5 F 10/15/18 07:30 Pulse 73 10/15/18 07:30 Resp 20 10/15/18 07:30 BP 133/71 10/15/18 07:30 Pulse Ox 87 10/15/18 07:30 - Physical Examination General: No Apparent Distress HEENT: Positive: PERRL, Normocephaly, Mucus Membranes Moist Neck: Positive: neck supple, trachea midline Cardiac: Positive: Reg Rate and Rhythm, S1/S2 Lungs: Positive: clear to auscultation Neuro: Positive: Grossly Intact Abdomen: Positive: Tender, Other (lap surgical sites) Skin: Negative: Rash Musculoskeletal: No Pain Extremities: Absent: edema - Imaging and Cardiology EKG: report reviewed, image reviewed Echo: pending - Telemetry EKG Rhythm: Sinus Rhythm - EKG Sinus rhythms and dysrhythmias: sinus rhythm AV and intraventricular conduction: right bundle branch block
[2018-10-15] MEDS: NORCO 5/325 PO PRN ×2 (12:49→19:47)
[2018-10-15] MEDS: D5/0.45NS 1,000 ML IV SCH (12:51)
--- NOTE | 2018-10-15 12:56 | Progress Note ---
Assessment and Plan Assessment and plan: 48-year-old -[place] female with no significant past medical history and not on any medications comes in for right lower quadrant pain since 5:30 AM in the morning. Pain is about 10 on a scale of 1-10 associated with nausea. Vomiting 2. No diarrhea. No shortness of breath. Some nonspecific chest pain present. Which is resolved. Patient attributes it to acid reflux. No diaphoresis no shortness of breath no palpitations. No exacerbating or relieving factors. No recent travel. Pain is sharp and 10 on 10. Nonradiating Past Medical History MVP Problems Acute appendicitis ileus elevated BP RBB block Plan sp Appy 10/14 cont abx ADAT per surgery -monitor BP, no meds for now, llikely elevated due to acute illness, unclear if she has chronic HTN -RBBB mgt per cardiology dvt ppx- chemical History Interval history: Review of systems Constitutional: No fevers, no malaise, no joint pains CVS: No chest pain, no orthopnea, no dyspnea on exertion, no pedal edema GI: abdominal pain is improved, no diarrhea, no vomiting, no constipation Respiratory: No shortness of breath, no wheezing, no coughing Hospitalist Physical - Physical exam Narrative exam: General.: Appears well, no distress, nontoxic HEENT: Moist mucous membranes, extraocular muscles intact, no lymphadenopathy Neck: supple Cardiac: S1-S2 heard Lungs: clear to auscultation bilaterally Abdomen: soft , nontender, nondistended, bowel sounds positive Extremities: no edema clubbing or cyanosis Skin: no rash or lesions Neurologic: no gross focal deficits Psych: appropriate behavior, appropriate mood, corporative, judgment intact - Constitutional Vitals: Temp Pulse Resp BP Pulse Ox 99.5 F 73 20 133/71 87 10/15/18 07:30 10/15/18 07:30 10/15/18 07:30 10/15/18 07:30 10/15/18 07:30 General appearance: Present: no acute distress Results - Labs CBC & Chem 7: 10/16/18 12:51 10/14/18 06:45 Labs: Laboratory Last Values WBC 8.3 K/mm3 (4.5-11.0) 10/14/18 06:45 RBC 4.38 M/mm3 (3.65-5.03) 10/14/18 06:45 Hgb 12.9 gm/dl (10.1-14.3) 10/14/18 06:45 Hct 39.0 % (30.3-42.9) 10/14/18 06:45 MCV 89 fl (79-97) 10/14/18 06:45 MCH 29 pg (28-32) 10/14/18 06:45 MCHC 33 % (30-34) 10/14/18 06:45 RDW 15.3 % (13.2-15.2) H 10/14/18 06:45 Plt Count 102 K/mm3 (140-440) L 10/14/18 06:45 Lymph % (Auto) 26.4 % (13.4-35.0) 10/14/18 06:45 [place] % (Auto) 6.6 % (0.0-7.3) 10/14/18 06:45 Eos % (Auto) 0.4 % (0.0-4.3) 10/14/18 06:45 Baso % (Auto) 0.7 % (0.0-1.8) 10/14/18 06:45 Lymph # 2.2 K/mm3 (1.2-5.4) 10/14/18 06:45 [place] # 0.5 K/mm3 (0.0-0.8) 10/14/18 06:45 Eos # 0.0 K/mm3 (0.0-0.4) 10/14/18 06:45 Baso # 0.1 K/mm3 (0.0-0.1) 10/14/18 06:45 Seg Neutrophils % 65.9 % (40.0-70.0) 10/14/18 06:45 Seg Neutrophils # 5.5 K/mm3 (1.8-7.7) 10/14/18 06:45 PT 13.2 Sec. (12.2-14.9) 10/13/18 14:38 INR 0.96 (0.87-1.13) 10/13/18 14:38 APTT 24.4 Sec. (24.2-36.6) 10/13/18 14:38 Sodium 140 mmol/L (137-145) 10/14/18 06:45 Potassium 4.1 mmol/L (3.6-5.0) 10/14/18 06:45 Chloride 103.4 mmol/L (98-107) 10/14/18 06:45 Carbon Dioxide 23 mmol/L (22-30) 10/14/18 06:45 Anion Gap 18 mmol/L 10/14/18 06:45 BUN 7 mg/dL (7-17) 10/14/18 06:45 Creatinine 1.0 mg/dL (0.7-1.2) 10/14/18 06:45 Estimated GFR > 60 ml/min 10/14/18 06:45 BUN/Creatinine Ratio 7 % 10/14/18 06:45 Glucose 115 mg/dL (65-100) H 10/14/18 06:45 Hemoglobin A1c 6.6 % (4-6) H 10/13/18 20:36 Calcium 9.0 mg/dL (8.4-10.2) 10/14/18 06:45 Magnesium 2.00 mg/dL (1.7-2.3) 10/13/18 14:38 Total Bilirubin 0.30 mg/dL (0.1-1.2) 10/14/18 06:45 AST 33 units/L (5-40) 10/14/18 06:45 ALT 13 units/L (7-56) 10/14/18 06:45 Alkaline Phosphatase 79 units/L (35-129) 10/14/18 06:45 Total Creatine Kinase 235 units/L (30-135) H 10/13/18 14:38 Troponin T < 0.010 ng/mL (0.00-0.029) 10/13/18 14:38 Total Protein 6.8 g/dL (6.3-8.2) 10/14/18 06:45 Albumin 3.8 g/dL (3.9-5) L 10/14/18 06:45 Albumin/Globulin Ratio 1.3 % 10/14/18 06:45 Lipase 13 units/L (13-60) 10/13/18 14:38 HCG, Quant 3.30 mIU/mL (0-4) 10/13/18 14:38 Urine Color Yellow (Yellow) 10/13/18 13:49 Urine Turbidity Clear (Clear) 10/13/18 13:49 Urine pH 8.0 (5.0-7.0) H 10/13/18 13:49 Ur Specific [place] 1.016 (1.003-1.030) 10/13/18 13:49 Urine Protein 30 mg/dl mg/dL (Negative) 10/13/18 13:49 Urine Glucose (UA) 50 mg/dL (Negative) 10/13/18 13:49 Urine Ketones Neg mg/dL (Negative) 10/13/18 13:49 Urine Blood Sm (Negative) 10/13/18 13:49 Urine Nitrite Neg (Negative) 10/13/18 13:49 Urine Bilirubin Neg (Negative) 10/13/18 13:49 Urine Urobilinogen < 2.0 mg/dL (<2.0) 10/13/18 13:49 Ur Leukocyte Esterase Tr (Negative) 10/13/18 13:49 Urine WBC (Auto) 2.0 /HPF (0.0-6.0) 10/13/18 13:49 Urine RBC (Auto) 11.0 /HPF (0.0-6.0) 10/13/18 13:49 U Epithel Cells (Auto) 1.0 /HPF (0-13.0) 10/13/18 13:49 Urine Bacteria (Auto) 2+ /HPF (Negative) 10/13/18 13:49 Urine Mucus Few /HPF 10/13/18 13:49 Blood Type O POSITIVE 10/13/18 14:38 Antibody Screen Negative 10/13/18 14:38
--- NOTE | 2018-10-15 13:20 | Progress Note ---
Assessment and Plan POD # 2 Pt feeling better. + flatus Abd soft Cardiology eval appreciated. w/u in progress surgically stable begin cl liq diet Selected Entries 10/15/18 10/15/18 05:37 07:30 Temperature 99.5 F Blood Pressure 133/71 Blood Pressure 121/66 [Left] Objective Vital Signs - 12hr 10/15/18 10/15/18 05:37 07:30 Temperature 98.2 F 99.5 F Pulse Rate 63 73 Respiratory 18 20 Rate Blood Pressure 133/71 Blood Pressure 121/66 [Left] O2 Sat by Pulse 100 87 Oximetry - Labs 10/14/18 06:45 10/14/18 06:45
[2018-10-15] MEDS ORDERED: CHLORASEPTIC MM PRN (14:00)
[2018-10-15] MEDS: ROCEPHIN/NS 2 GM/100 ML 2 GM/100 ML BAG IV SCH (21:16)
[2018-10-16] MEDS: D5/0.45NS 1,000 ML IV SCH ×2 (03:35→16:17)
[2018-10-16] MEDS: NORCO 5/325 PO PRN ×3 (03:35→22:14)
[2018-10-16] MEDS: FLAGYL 500 MG/100 ML 500 MG/100 ML BAG IV SCH (05:29)
[2018-10-16] MEDS: SODIUM CHLORIDE FLUSH SYRINGE 10 ML IV SCH ×2 (09:54→22:09)
[2018-10-16] MEDS: LEVAQUIN 500MG/100ML 500 MG/100 ML BAG IV SCH (09:54)
[2018-10-16] MEDS: PEPCID IV SCH ×2 (10:00→22:09)
[2018-10-16] MEDS ORDERED: PERCOCET 5/325 PO PRN (10:30)
--- NOTE | 2018-10-16 10:47 | Progress Note ---
Assessment and Plan Echo reviewed - EF 50-55%, no significant valvular abnormalities. Pt c/o some dizziness with ambulation. Obtain orthostatics. Currently stable cardiac status. Pending orthostatics are unremarkable, pt may discharge home from cardiology standpoint. Follow general surgery recs. Recommend follow up in our office with Dr. Daniel within 1-2 weeks of hospital discharge ([phone]). The patient has been seen in conjunction with Dr. Daniel who agrees with the assessment and plan of care. - Patient Problems (1) Acute appendicitis Current Visit: Yes Status: Acute Qualifiers: Acute appendicitis type: unspecified acute appendicitis type Qualified Code(s): K35.80 - Unspecified acute appendicitis (2) Right bundle branch block Current Visit: Yes Status: Acute (3) HTN (hypertension) Current Visit: Yes Status: Chronic (4) History of mitral valve prolapse Current Visit: Yes Status: Suspected Subjective Date of service: 10/16/18 Principal diagnosis: acute appendicitis; abnormal ECG Interval history: pt resting in bed, states she is feeling better today. c/o some dizziness with ambulation. Objective Last Vital Signs Temp 98.5 F 10/16/18 07:41 Pulse 70 10/16/18 07:40 Resp 18 10/16/18 07:41 BP 116/69 10/16/18 07:41 Pulse Ox 99 10/16/18 07:40 - Physical Examination General: No Apparent Distress HEENT: Positive: PERRL, Normocephaly, Mucus Membranes Moist Neck: Positive: neck supple, trachea midline Cardiac: Positive: Reg Rate and Rhythm, S1/S2 Lungs: Positive: clear to auscultation Neuro: Positive: Grossly Intact Abdomen: Positive: Tender, Other (lap surgical sites) Skin: Negative: Rash Musculoskeletal: No Pain Extremities: Absent: edema - Imaging and Cardiology EKG: report reviewed, image reviewed Echo: pending - EKG Sinus rhythms and dysrhythmias: sinus rhythm AV and intraventricular conduction: right bundle branch block
--- NOTE | 2018-10-16 11:32 | Progress Note ---
Assessment and Plan POD # 3 Pt c/o cough, dizzy when ambulating. betsey cl liq diet. neg abd pain Abd soft, non tender. + BS surgically stable full liq diet change antibiotics to po CxR will check cbc Objective Vital Signs - 12hr 10/16/18 10/16/18 10/16/18 03:35 03:46 07:40 Temperature 99.1 F Pulse Rate 73 70 Respiratory 18 18 Rate Blood Pressure 137/77 O2 Sat by Pulse 100 99 Oximetry 10/16/18 07:41 Temperature 98.5 F Pulse Rate Respiratory 18 Rate Blood Pressure 116/69 O2 Sat by Pulse Oximetry - Labs 10/14/18 06:45 10/14/18 06:45
--- NOTE | 2018-10-16 12:31 | XRay Report ---
ROUTINE CHEST, TWO VIEWS: HISTORY: Cough. The trachea, heart, mediastinal contour, lung vergara and bony thorax are unremarkable. IMPRESSION: Unremarkable chest x-ray.
[2018-10-16 13:21] LABS: Basophils % (Auto) 0.5 % (0.0-1.8); Eosinophils # (Auto) 0.1 K/mm3 (0.0-0.4); Eosinophils % (Auto) 2.3 % (0.0-4.3); Hematocrit 39.2 % (30.3-42.9); Hemoglobin 12.8 gm/dl (10.1-14.3); Lymphocytes # (Auto) 1.1 K/mm3 (1.2-5.4); Lymphocytes % (Auto) 22.3 % (13.4-35.0); Mean Corpuscular HGB Conc 33 % (30-34); Mean Corpuscular Volume 89 fl (79-97); Monocytes # (Auto) 0.4 K/mm3 (0.0-0.8); Monocytes % (Auto) 8.6 % (0.0-7.3); Platelet Count 194 K/mm3 (140-440); Red Blood Count 4.41 M/mm3 (3.65-5.03); Red Cell Distribution Width 15.8 % (13.2-15.2)
[2018-10-16] MEDS: TESSALON PERLES PO SCH ×2 (13:48→22:09)
--- NOTE | 2018-10-16 14:44 | Progress Note ---
Assessment and Plan Assessment and plan: 48-year-old -[place] female with no significant past medical history and not on any medications comes in for right lower quadrant pain since 5:30 AM in the morning. Pain is about 10 on a scale of 1-10 associated with nausea. Vomiting 2. No diarrhea. No shortness of breath. Some nonspecific chest pain present. Which is resolved. Patient attributes it to acid reflux. No diaphoresis no shortness of breath no palpitations. No exacerbating or relieving factors. No recent travel. Pain is sharp and 10 on 10. Nonradiating Past Medical History MVP Problems Acute appendicitis ileus elevated BP RBB block cough Plan sp Appy 10/14 cont abx ADAT per surgery -monitor BP, no meds for now, llikely elevated due to acute illness, unclear if she has chronic HTN -given cough, obtain cxr and give cough suppressants -RBBB mgt per cardiology dvt ppx- chemical History Interval history: Review of systems Constitutional: No fevers, no malaise, no joint pains CVS: No chest pain, no orthopnea, no dyspnea on exertion, no pedal edema GI: abdominal pain is improved, no diarrhea, no vomiting, no constipation Respiratory: No shortness of breath, no wheezing, c/o dry coughing Hospitalist Physical - Physical exam Narrative exam: General.: Appears well, no distress, nontoxic HEENT: Moist mucous membranes, extraocular muscles intact, no lymphadenopathy Neck: supple Cardiac: S1-S2 heard Lungs: clear to auscultation bilaterally Abdomen: soft , nontender, nondistended, bowel sounds positive Extremities: no edema clubbing or cyanosis Skin: no rash or lesions Neurologic: no gross focal deficits Psych: appropriate behavior, appropriate mood, corporative, judgment intact - Constitutional Vitals: Temp Pulse Resp BP Pulse Ox 98.6 F 41 L 18 140/77 50 L 10/16/18 11:00 10/16/18 11:01 10/16/18 07:41 10/16/18 11:01 10/16/18 11:01 General appearance: Present: no acute distress Results - Labs CBC & Chem 7: 10/16/18 12:51 10/14/18 06:45 Labs: Laboratory Last Values WBC 4.8 K/mm3 (4.5-11.0) 10/16/18 12:51 RBC 4.41 M/mm3 (3.65-5.03) 10/16/18 12:51 Hgb 12.8 gm/dl (10.1-14.3) 10/16/18 12:51 Hct 39.2 % (30.3-42.9) 10/16/18 12:51 MCV 89 fl (79-97) 10/16/18 12:51 MCH 29 pg (28-32) 10/16/18 12:51 MCHC 33 % (30-34) 10/16/18 12:51 RDW 15.8 % (13.2-15.2) H 10/16/18 12:51 Plt Count 194 K/mm3 (140-440) 10/16/18 12:51 Lymph % (Auto) 22.3 % (13.4-35.0) 10/16/18 12:51 [place] % (Auto) 8.6 % (0.0-7.3) H 10/16/18 12:51 Eos % (Auto) 2.3 % (0.0-4.3) 10/16/18 12:51 Baso % (Auto) 0.5 % (0.0-1.8) 10/16/18 12:51 Lymph # 1.1 K/mm3 (1.2-5.4) L 10/16/18 12:51 [place] # 0.4 K/mm3 (0.0-0.8) 10/16/18 12:51 Eos # 0.1 K/mm3 (0.0-0.4) 10/16/18 12:51 Baso # 0.0 K/mm3 (0.0-0.1) 10/16/18 12:51 Seg Neutrophils % 66.3 % (40.0-70.0) 10/16/18 12:51 Seg Neutrophils # 3.2 K/mm3 (1.8-7.7) 10/16/18 12:51 PT 13.2 Sec. (12.2-14.9) 10/13/18 14:38 INR 0.96 (0.87-1.13) 10/13/18 14:38 APTT 24.4 Sec. (24.2-36.6) 10/13/18 14:38 Sodium 140 mmol/L (137-145) 10/14/18 06:45 Potassium 4.1 mmol/L (3.6-5.0) 10/14/18 06:45 Chloride 103.4 mmol/L (98-107) 10/14/18 06:45 Carbon Dioxide 23 mmol/L (22-30) 10/14/18 06:45 Anion Gap 18 mmol/L 10/14/18 06:45 BUN 7 mg/dL (7-17) 10/14/18 06:45 Creatinine 1.0 mg/dL (0.7-1.2) 10/14/18 06:45 Estimated GFR > 60 ml/min 10/14/18 06:45 BUN/Creatinine Ratio 7 % 10/14/18 06:45 Glucose 115 mg/dL (65-100) H 10/14/18 06:45 Hemoglobin A1c 6.6 % (4-6) H 10/13/18 20:36 Calcium 9.0 mg/dL (8.4-10.2) 10/14/18 06:45 Magnesium 2.00 mg/dL (1.7-2.3) 10/13/18 14:38 Total Bilirubin 0.30 mg/dL (0.1-1.2) 10/14/18 06:45 AST 33 units/L (5-40) 10/14/18 06:45 ALT 13 units/L (7-56) 10/14/18 06:45 Alkaline Phosphatase 79 units/L (35-129) 10/14/18 06:45 Total Creatine Kinase 235 units/L (30-135) H 10/13/18 14:38 Troponin T < 0.010 ng/mL (0.00-0.029) 10/13/18 14:38 Total Protein 6.8 g/dL (6.3-8.2) 10/14/18 06:45 Albumin 3.8 g/dL (3.9-5) L 10/14/18 06:45 Albumin/Globulin Ratio 1.3 % 10/14/18 06:45 Lipase 13 units/L (13-60) 10/13/18 14:38 HCG, Quant 3.30 mIU/mL (0-4) 10/13/18 14:38 Urine Color Yellow (Yellow) 10/13/18 13:49 Urine Turbidity Clear (Clear) 10/13/18 13:49 Urine pH 8.0 (5.0-7.0) H 10/13/18 13:49 Ur Specific [place] 1.016 (1.003-1.030) 10/13/18 13:49 Urine Protein 30 mg/dl mg/dL (Negative) 10/13/18 13:49 Urine Glucose (UA) 50 mg/dL (Negative) 10/13/18 13:49 Urine Ketones Neg mg/dL (Negative) 10/13/18 13:49 Urine Blood Sm (Negative) 10/13/18 13:49 Urine Nitrite Neg (Negative) 10/13/18 13:49 Urine Bilirubin Neg (Negative) 10/13/18 13:49 Urine Urobilinogen < 2.0 mg/dL (<2.0) 10/13/18 13:49 Ur Leukocyte Esterase Tr (Negative) 10/13/18 13:49 Urine WBC (Auto) 2.0 /HPF (0.0-6.0) 10/13/18 13:49 Urine RBC (Auto) 11.0 /HPF (0.0-6.0) 10/13/18 13:49 U Epithel Cells (Auto) 1.0 /HPF (0-13.0) 10/13/18 13:49 Urine Bacteria (Auto) 2+ /HPF (Negative) 10/13/18 13:49 Urine Mucus Few /HPF 10/13/18 13:49 Blood Type O POSITIVE 10/13/18 14:38 Antibody Screen Negative 10/13/18 14:38
[2018-10-16] MEDS: ROBITUSSIN AC PO PRN ×2 (16:16→20:36)
[2018-10-17] MEDS: TYLENOL PO PRN ×2 (00:33→20:36)
[2018-10-17] MEDS: D5/0.45NS 1,000 ML IV SCH (00:36)
[2018-10-17] MEDS: ROBITUSSIN AC PO PRN ×2 (02:17→10:37)
[2018-10-17] MEDS: TESSALON PERLES PO SCH ×3 (05:33→21:33)
[2018-10-17] MEDS: NORCO 5/325 PO PRN ×3 (05:52→20:32)
[2018-10-17] MEDS: ZOFRAN IV PRN ×2 (05:55→18:33)
--- NOTE | 2018-10-17 07:53 | Progress Note ---
Assessment and Plan Assessment and plan: 48-year-old -[place] female with no significant past medical history and not on any medications comes in for right lower quadrant pain since 5:30 AM in the morning. Pain is about 10 on a scale of 1-10 associated with nausea. Vomiting 2. No diarrhea. No shortness of breath. Some nonspecific chest pain present. Which is resolved. Patient attributes it to acid reflux. No diaphoresis no shortness of breath no palpitations. No exacerbating or relieving factors. No recent travel. Pain is sharp and 10 on 10. Nonradiating Past Medical History MVP Problems Acute appendicitis, sp appy 10/14, on abx, improving, surg cx growing pansens ecoli ileus, ADAT per GS elevated BP; due to acute illness, improving, cont to monitor RBB block. mgt per cardiology post nasal drip and cough; cxr neg, give cough suppresants, flonase Low grade fever, CXR neg, check UA and bc, already on abx dvt ppx- chemical History Interval history: Review of systems Constitutional: No fevers, no malaise, no joint pains CVS: No chest pain, no orthopnea, no dyspnea on exertion, no pedal edema GI: abdominal pain is improved, no diarrhea, no vomiting, no constipation Respiratory: No shortness of breath, no wheezing, c/o dry coughing, and post nasal drip Hospitalist Physical - Physical exam Narrative exam: General.: Appears well, no distress, nontoxic HEENT: Moist mucous membranes, extraocular muscles intact, no lymphadenopathy Neck: supple Cardiac: S1-S2 heard Lungs: clear to auscultation bilaterally Abdomen: soft , nontender, nondistended, bowel sounds positive Extremities: no edema clubbing or cyanosis Skin: no rash or lesions Neurologic: no gross focal deficits Psych: appropriate behavior, appropriate mood, corporative, judgment intact - Constitutional Vitals: Temp Pulse Resp BP Pulse Ox 99.0 F 70 20 129/65 96 10/17/18 04:35 10/17/18 04:35 10/17/18 04:35 10/17/18 04:35 10/17/18 04:35 General appearance: Present: no acute distress Results - Labs CBC & Chem 7: 10/16/18 12:51 10/14/18 06:45 Labs: Laboratory Last Values WBC 4.8 K/mm3 (4.5-11.0) 10/16/18 12:51 RBC 4.41 M/mm3 (3.65-5.03) 10/16/18 12:51 Hgb 12.8 gm/dl (10.1-14.3) 10/16/18 12:51 Hct 39.2 % (30.3-42.9) 10/16/18 12:51 MCV 89 fl (79-97) 10/16/18 12:51 MCH 29 pg (28-32) 10/16/18 12:51 MCHC 33 % (30-34) 10/16/18 12:51 RDW 15.8 % (13.2-15.2) H 10/16/18 12:51 Plt Count 194 K/mm3 (140-440) 10/16/18 12:51 Lymph % (Auto) 22.3 % (13.4-35.0) 10/16/18 12:51 [place] % (Auto) 8.6 % (0.0-7.3) H 10/16/18 12:51 Eos % (Auto) 2.3 % (0.0-4.3) 10/16/18 12:51 Baso % (Auto) 0.5 % (0.0-1.8) 10/16/18 12:51 Lymph # 1.1 K/mm3 (1.2-5.4) L 10/16/18 12:51 [place] # 0.4 K/mm3 (0.0-0.8) 10/16/18 12:51 Eos # 0.1 K/mm3 (0.0-0.4) 10/16/18 12:51 Baso # 0.0 K/mm3 (0.0-0.1) 10/16/18 12:51 Seg Neutrophils % 66.3 % (40.0-70.0) 10/16/18 12:51 Seg Neutrophils # 3.2 K/mm3 (1.8-7.7) 10/16/18 12:51 PT 13.2 Sec. (12.2-14.9) 10/13/18 14:38 INR 0.96 (0.87-1.13) 10/13/18 14:38 APTT 24.4 Sec. (24.2-36.6) 10/13/18 14:38 Sodium 140 mmol/L (137-145) 10/14/18 06:45 Potassium 4.1 mmol/L (3.6-5.0) 10/14/18 06:45 Chloride 103.4 mmol/L (98-107) 10/14/18 06:45 Carbon Dioxide 23 mmol/L (22-30) 10/14/18 06:45 Anion Gap 18 mmol/L 10/14/18 06:45 BUN 7 mg/dL (7-17) 10/14/18 06:45 Creatinine 1.0 mg/dL (0.7-1.2) 10/14/18 06:45 Estimated GFR > 60 ml/min 10/14/18 06:45 BUN/Creatinine Ratio 7 % 10/14/18 06:45 Glucose 115 mg/dL (65-100) H 10/14/18 06:45 Hemoglobin A1c 6.6 % (4-6) H 10/13/18 20:36 Calcium 9.0 mg/dL (8.4-10.2) 10/14/18 06:45 Magnesium 2.00 mg/dL (1.7-2.3) 10/13/18 14:38 Total Bilirubin 0.30 mg/dL (0.1-1.2) 10/14/18 06:45 AST 33 units/L (5-40) 10/14/18 06:45 ALT 13 units/L (7-56) 10/14/18 06:45 Alkaline Phosphatase 79 units/L (35-129) 10/14/18 06:45 Total Creatine Kinase 235 units/L (30-135) H 10/13/18 14:38 Troponin T < 0.010 ng/mL (0.00-0.029) 10/13/18 14:38 Total Protein 6.8 g/dL (6.3-8.2) 10/14/18 06:45 Albumin 3.8 g/dL (3.9-5) L 10/14/18 06:45 Albumin/Globulin Ratio 1.3 % 10/14/18 06:45 Lipase 13 units/L (13-60) 10/13/18 14:38 HCG, Quant 3.30 mIU/mL (0-4) 10/13/18 14:38 Urine Color Yellow (Yellow) 10/13/18 13:49 Urine Turbidity Clear (Clear) 10/13/18 13:49 Urine pH 8.0 (5.0-7.0) H 10/13/18 13:49 Ur Specific [place] 1.016 (1.003-1.030) 10/13/18 13:49 Urine Protein 30 mg/dl mg/dL (Negative) 10/13/18 13:49 Urine Glucose (UA) 50 mg/dL (Negative) 10/13/18 13:49 Urine Ketones Neg mg/dL (Negative) 10/13/18 13:49 Urine Blood Sm (Negative) 10/13/18 13:49 Urine Nitrite Neg (Negative) 10/13/18 13:49 Urine Bilirubin Neg (Negative) 10/13/18 13:49 Urine Urobilinogen < 2.0 mg/dL (<2.0) 10/13/18 13:49 Ur Leukocyte Esterase Tr (Negative) 10/13/18 13:49 Urine WBC (Auto) 2.0 /HPF (0.0-6.0) 10/13/18 13:49 Urine RBC (Auto) 11.0 /HPF (0.0-6.0) 10/13/18 13:49 U Epithel Cells (Auto) 1.0 /HPF (0-13.0) 10/13/18 13:49 Urine Bacteria (Auto) 2+ /HPF (Negative) 10/13/18 13:49 Urine Mucus Few /HPF 10/13/18 13:49 Blood Type O POSITIVE 10/13/18 14:38 Antibody Screen Negative 10/13/18 14:38
[2018-10-17] MEDS: LEVAQUIN PO SCH (10:39)
[2018-10-17] MEDS: PEPCID IV SCH ×4 (10:43→21:34)
--- NOTE | 2018-10-17 12:40 | Progress Note ---
Assessment and Plan Pt still c/o persistent cough. now periumbilical and pericostal pain secondary to cough. Temp last night Abd soft wbc 4.8 CxR - wnl surgically stable advance diet as betsey pulm eval Selected Entries 10/16/18 10/16/18 10/16/18 07:40 07:41 23:48 Temperature 98.5 F 100.8 F H Pulse Rate 70 Respiratory 18 Rate Blood Pressure 116/69 Blood Pressure [Left] 10/17/18 11:05 Temperature Pulse Rate 68 Respiratory 20 Rate Blood Pressure Blood Pressure 139/58 [Left] Laboratory Tests 10/16/18 12:51 WBC 4.8 Hgb 12.8 Hct 39.2 Objective Vital Signs - 12hr 10/17/18 10/17/18 10/17/18 04:35 07:25 11:05 Temperature 99.0 F 99.2 F 99.4 F Pulse Rate 70 73 68 Respiratory 20 18 20 Rate Blood Pressure 129/65 Blood Pressure 120/78 139/58 [Left] O2 Sat by Pulse 96 94 98 Oximetry - Labs 10/16/18 12:51 10/14/18 06:45
[2018-10-17 15:26] LABS: Bacteria,Urine 1+ /HPF (Negative); Bilirubin,Urine NEG (Negative); Blood,Urine SM (Negative); Color,Urine Straw (Yellow); Protein,Urine <15 mg/dL mg/dL (Negative); RBC,Urine < 1.0 /HPF (0.0-6.0); Urobilinogen,Urine < 2.0 mg/dL (<2.0)
[2018-10-17] MEDS: ROBITUSSIN AC PO SCH ×2 (18:33→21:33)
[2018-10-17] MEDS: FLONASE NS SCH (21:32)
[2018-10-17] MEDS: SODIUM CHLORIDE FLUSH SYRINGE 10 ML IV SCH (21:33)
[2018-10-18] MEDS: D5/0.45NS 1,000 ML IV SCH ×2 (00:31→15:01)
[2018-10-18] MEDS: TYLENOL PO PRN (05:01)
[2018-10-18] MEDS: TESSALON PERLES PO SCH ×3 (05:01→21:08)
[2018-10-18] MEDS: NORCO 5/325 PO PRN ×4 (05:02→21:08)
[2018-10-18] MEDS: SODIUM CHLORIDE FLUSH SYRINGE 10 ML IV SCH ×3 (09:07→22:00)
[2018-10-18] MEDS: LEVAQUIN PO SCH (09:07)
[2018-10-18] MEDS: PEPCID IV SCH ×4 (09:07→22:00)
[2018-10-18] MEDS: ROBITUSSIN AC PO SCH ×4 (09:07→21:08)
[2018-10-18] MEDS: FLONASE NS SCH (09:08)
[2018-10-18] MEDS: ZOFRAN IV PRN ×2 (09:20→17:39)
--- NOTE | 2018-10-18 11:35 | Progress Note ---
Assessment and Plan Assessment and plan: 48F who pw RLQ pain Past Medical History MVP Problems Acute appendicitis, sp appy 10/14, on abx, improving, surg cx growing pansens ecoli ileus, ADAT per GS elevated BP; due to acute illness, improving, cont to monitor RBB block. mgt per cardiology post nasal drip and cough; cxr neg, give cough suppresants, flonase Low grade fever, CXR neg, check UA and bc, already on abx dvt ppx- chemical History Interval history: Review of systems Constitutional: had low grade fevers, no malaise, no joint pains CVS: No chest pain, no orthopnea, no dyspnea on exertion, no pedal edema GI: abdominal pain is improved, no diarrhea, no vomiting, no constipation Respiratory: No shortness of breath, no wheezing, c/o dry coughing, and post nasal drip Hospitalist Physical - Physical exam Narrative exam: General.: Appears well, no distress, nontoxic HEENT: Moist mucous membranes, extraocular muscles intact, no lymphadenopathy Neck: supple Cardiac: S1-S2 heard Lungs: clear to auscultation bilaterally Abdomen: soft , nontender, nondistended, bowel sounds positive Extremities: no edema clubbing or cyanosis Skin: no rash or lesions Neurologic: no gross focal deficits Psych: appropriate behavior, appropriate mood, corporative, judgment intact - Constitutional Vitals: Temp Pulse Resp BP Pulse Ox 99.0 F 63 18 107/50 99 10/18/18 07:24 10/18/18 07:24 10/18/18 10:07 10/18/18 07:24 10/18/18 07:24 General appearance: Present: no acute distress Results - Labs CBC & Chem 7: 10/16/18 12:51 10/14/18 06:45 Labs: Laboratory Last Values WBC 4.8 K/mm3 (4.5-11.0) 10/16/18 12:51 RBC 4.41 M/mm3 (3.65-5.03) 10/16/18 12:51 Hgb 12.8 gm/dl (10.1-14.3) 10/16/18 12:51 Hct 39.2 % (30.3-42.9) 10/16/18 12:51 MCV 89 fl (79-97) 10/16/18 12:51 MCH 29 pg (28-32) 10/16/18 12:51 MCHC 33 % (30-34) 10/16/18 12:51 RDW 15.8 % (13.2-15.2) H 10/16/18 12:51 Plt Count 194 K/mm3 (140-440) 10/16/18 12:51 Lymph % (Auto) 22.3 % (13.4-35.0) 10/16/18 12:51 [place] % (Auto) 8.6 % (0.0-7.3) H 10/16/18 12:51 Eos % (Auto) 2.3 % (0.0-4.3) 10/16/18 12:51 Baso % (Auto) 0.5 % (0.0-1.8) 10/16/18 12:51 Lymph # 1.1 K/mm3 (1.2-5.4) L 10/16/18 12:51 [place] # 0.4 K/mm3 (0.0-0.8) 10/16/18 12:51 Eos # 0.1 K/mm3 (0.0-0.4) 10/16/18 12:51 Baso # 0.0 K/mm3 (0.0-0.1) 10/16/18 12:51 Seg Neutrophils % 66.3 % (40.0-70.0) 10/16/18 12:51 Seg Neutrophils # 3.2 K/mm3 (1.8-7.7) 10/16/18 12:51 PT 13.2 Sec. (12.2-14.9) 10/13/18 14:38 INR 0.96 (0.87-1.13) 10/13/18 14:38 APTT 24.4 Sec. (24.2-36.6) 10/13/18 14:38 Sodium 140 mmol/L (137-145) 10/14/18 06:45 Potassium 4.1 mmol/L (3.6-5.0) 10/14/18 06:45 Chloride 103.4 mmol/L (98-107) 10/14/18 06:45 Carbon Dioxide 23 mmol/L (22-30) 10/14/18 06:45 Anion Gap 18 mmol/L 10/14/18 06:45 BUN 7 mg/dL (7-17) 10/14/18 06:45 Creatinine 1.0 mg/dL (0.7-1.2) 10/14/18 06:45 Estimated GFR > 60 ml/min 10/14/18 06:45 BUN/Creatinine Ratio 7 % 10/14/18 06:45 Glucose 115 mg/dL (65-100) H 10/14/18 06:45 Hemoglobin A1c 6.6 % (4-6) H 10/13/18 20:36 Calcium 9.0 mg/dL (8.4-10.2) 10/14/18 06:45 Magnesium 2.00 mg/dL (1.7-2.3) 10/13/18 14:38 Total Bilirubin 0.30 mg/dL (0.1-1.2) 10/14/18 06:45 AST 33 units/L (5-40) 10/14/18 06:45 ALT 13 units/L (7-56) 10/14/18 06:45 Alkaline Phosphatase 79 units/L (35-129) 10/14/18 06:45 Total Creatine Kinase 235 units/L (30-135) H 10/13/18 14:38 Troponin T < 0.010 ng/mL (0.00-0.029) 10/13/18 14:38 Total Protein 6.8 g/dL (6.3-8.2) 10/14/18 06:45 Albumin 3.8 g/dL (3.9-5) L 10/14/18 06:45 Albumin/Globulin Ratio 1.3 % 10/14/18 06:45 Lipase 13 units/L (13-60) 10/13/18 14:38 HCG, Quant 3.30 mIU/mL (0-4) 10/13/18 14:38 Urine Color Straw (Yellow) 10/17/18 14:45 Urine Turbidity Clear (Clear) 10/17/18 14:45 Urine pH 7.0 (5.0-7.0) 10/17/18 14:45 Ur Specific Bonner 1.003 (1.003-1.030) 10/17/18 14:45 Urine Protein <15 mg/dl mg/dL (Negative) 10/17/18 14:45 Urine Glucose (UA) Neg mg/dL (Negative) 10/17/18 14:45 Urine Ketones Neg mg/dL (Negative) 10/17/18 14:45 Urine Blood Sm (Negative) 10/17/18 14:45 Urine Nitrite Neg (Negative) 10/17/18 14:45 Urine Bilirubin Neg (Negative) 10/17/18 14:45 Urine Urobilinogen < 2.0 mg/dL (<2.0) 10/17/18 14:45 Ur Leukocyte Esterase Neg (Negative) 10/17/18 14:45 Urine WBC (Auto) 1.0 /HPF (0.0-6.0) 10/17/18 14:45 Urine RBC (Auto) < 1.0 /HPF (0.0-6.0) 10/17/18 14:45 U Epithel Cells (Auto) 1.0 /HPF (0-13.0) 10/17/18 14:45 Urine Bacteria (Auto) 1+ /HPF (Negative) 10/17/18 14:45 Urine Mucus Few /HPF 10/13/18 13:49 Blood Type O POSITIVE 10/13/18 14:38 Antibody Screen Negative 10/13/18 14:38
--- NOTE | 2018-10-18 11:46 | Progress Note ---
Subjective Principal diagnosis: acute appendicitis; abnormal ECG Interval history: consult dictated Objective Vital Signs - 12hr 10/18/18 10/18/18 10/18/18 00:21 04:45 04:46 Temperature 99.1 F 99.8 F H Pulse Rate 67 67 64 Respiratory 18 17 Rate Respiratory Rate [ABD] Blood Pressure 118/73 118/61 O2 Sat by Pulse 100 100 99 Oximetry 10/18/18 10/18/18 10/18/18 05:01 05:02 07:24 Temperature 99.0 F Pulse Rate 63 Respiratory 18 18 18 Rate Respiratory Rate [ABD] Blood Pressure 107/50 O2 Sat by Pulse 99 Oximetry 10/18/18 10/18/18 10/18/18 09:07 10:00 10:07 Temperature Pulse Rate Respiratory 18 18 Rate Respiratory 18 Rate [ABD] Blood Pressure O2 Sat by Pulse Oximetry CBC and BMP: 10/16/18 12:51 10/14/18 06:45 ABG, PT/INR, D-dimer: PT/INR, D-dimer PT 13.2 Sec. (12.2-14.9) 10/13/18 14:38 INR 0.96 (0.87-1.13) 10/13/18 14:38 Abnormal lab findings: Abnormal Labs 10/13/18 10/13/18 10/13/18 13:49 14:38 14:38 RDW 15.4 H Plt Count Lymph % (Auto) 10.8 L [place] % (Auto) Lymph # 0.8 L Seg Neutrophils % 87.3 H Glucose 145 H Hemoglobin A1c Total Creatine Kinase 235 H Albumin Urine pH 8.0 H 10/13/18 10/14/18 10/14/18 20:36 06:45 06:45 RDW 15.3 H Plt Count 102 L Lymph % (Auto) [place] % (Auto) Lymph # Seg Neutrophils % Glucose 115 H Hemoglobin A1c 6.6 H Total Creatine Kinase Albumin 3.8 L Urine pH 10/16/18 12:51 RDW 15.8 H Plt Count Lymph % (Auto) [place] % (Auto) 8.6 H Lymph # 1.1 L Seg Neutrophils % Glucose Hemoglobin A1c Total Creatine Kinase Albumin Urine pH
--- NOTE | 2018-10-18 12:03 | Progress Note ---
Assessment and Plan Pt still c/o of persistent cough. betsey diet Abd soft, non tender surgically stable awaiting pulm eval Selected Entries 10/18/18 10/18/18 07:24 10:07 Temperature 99.0 F Respiratory 18 Rate Blood Pressure 107/50 Laboratory Tests 10/16/18 12:51 WBC 4.8 Hgb 12.8 Hct 39.2 Objective Vital Signs - 12hr 10/18/18 10/18/18 10/18/18 00:21 04:45 04:46 Temperature 99.1 F 99.8 F H Pulse Rate 67 67 64 Respiratory 18 17 Rate Respiratory Rate [ABD] Blood Pressure 118/73 118/61 O2 Sat by Pulse 100 100 99 Oximetry 10/18/18 10/18/18 10/18/18 05:01 05:02 07:24 Temperature 99.0 F Pulse Rate 63 Respiratory 18 18 18 Rate Respiratory Rate [ABD] Blood Pressure 107/50 O2 Sat by Pulse 99 Oximetry 10/18/18 10/18/18 10/18/18 09:07 10:00 10:07 Temperature Pulse Rate Respiratory 18 18 Rate Respiratory 18 Rate [ABD] Blood Pressure O2 Sat by Pulse Oximetry - Labs 10/16/18 12:51 10/14/18 06:45
--- NOTE | 2018-10-18 15:11 | Consultation ---
HISTORY OF PRESENT ILLNESS: This is a 48-year-old female who was admitted with abdominal pain is found to have appendicitis, status post appendectomy, now with cough. The patient had a chest x-ray done on 10/16/2018 that was negative for any acute process. The patient reports she has a cough with postnasal drip, especially when she tries to lie flat. She also reports some chest tightness with some wheezing associated with the cough. She denies any lightheadedness or any dizziness. PAST MEDICAL HISTORY: The patient has a history of MVP. PAST SURGICAL HISTORY: Tubal ligation, inguinal hernia repair, appendectomy. SOCIAL HISTORY: Never smoked and is presently not employed. FAMILY HISTORY: Positive for hypertension. REVIEW OF SYSTEMS: No hemoptysis or hematemesis. No diarrhea. No constipation. Does report postnasal drip, does report nasal congestion, does report wheezing, does report some nasal dryness. She denies any lightheadedness or dizziness. Denies any prior history of asthma. PHYSICAL EXAMINATION: VITAL SIGNS: Blood pressure 107/50, 99.0, 63. GENERAL: -[place] female, lying in bed, in no distress. HEENT: Pupils reactive. Trachea midline. No stridor. NECK: Supple. CARDIOVASCULAR: Normal S1, S2. LUNGS: Distant but clear. ABDOMEN: Positive bowel sounds, soft. EXTREMITIES: Failed to reveal cyanosis, clubbing, or edema. Chest x-ray done on 10/16/2018 negative for any acute process. Laboratory data done on 10/16/2018, 4.8, 12.8, platelet count of 194. IMPRESSION: A female with cough post-surgery and nasal congestion reported to have bronchospasm, possible mild upper respiratory tract infection. At this time, we will start the patient on nebulizer treatments. Continue pulmonary toilet with incentive spirometry. Attempt ambulation. Continue antitussive medications. Nasal hygiene with saline and Flonase. Continue supportive care. Thank you for this interesting consult. JOB# [id number] LORETTA/DARIUS
[2018-10-18] MEDS: PROVENTIL IH SCH ×2 (16:35→20:43)
[2018-10-19] MEDS: TYLENOL PO PRN (00:04)
[2018-10-19] MEDS: D5/0.45NS 1,000 ML IV SCH ×2 (00:32→08:31)
[2018-10-19] MEDS: ZOFRAN IV PRN ×3 (03:03→14:43)
[2018-10-19] MEDS: NORCO 5/325 PO PRN (06:02)
[2018-10-19] MEDS: TESSALON PERLES PO SCH ×2 (06:02→17:31)
[2018-10-19] MEDS: ROBITUSSIN AC PO SCH ×3 (09:44→17:31)
[2018-10-19] MEDS: FLONASE NS SCH (09:45)
[2018-10-19] MEDS: LEVAQUIN PO SCH (09:45)
[2018-10-19] MEDS: SODIUM CHLORIDE FLUSH SYRINGE 10 ML IV SCH (09:46)
[2018-10-19] MEDS: PEPCID IV SCH ×2 (09:46)
--- NOTE | 2018-10-19 10:35 | Progress Note ---
Assessment and Plan Assessment and plan: 48F who pw RLQ pain Past Medical History MVP Problems Acute appendicitis, sp appy 10/14, on abx, improving, surg cx growing pansens ecoli ileus, ADAT per GS -RUQ us negative obtain KUB today elevated BP; due to acute illness, improving, cont to monitor RBB block. mgt per cardiology post nasal drip and cough, reactive airway disease; cxr neg, give cough suppre sants, flonase, Management per pulmonology Low grade fever, CXR neg, check UA and bc, already on abx chest pain/ sob, low grade fever: Obtain CTA chest had bad reaction to iv dilaudid and IV morphine, have been dc dvt ppx- chemical History Interval history: Review of systems Constitutional: had low grade fevers, no malaise, no joint pains CVS: No chest pain, no orthopnea, no dyspnea on exertion, no pedal edema GI: abdominal pain is improved, no diarrhea, no vomiting, no constipation Respiratory: No shortness of breath, no wheezing, c/o dry coughing, and post nasal drip Hospitalist Physical - Physical exam Narrative exam: General.: Appears well, no distress, nontoxic HEENT: Moist mucous membranes, extraocular muscles intact, no lymphadenopathy Neck: supple Cardiac: S1-S2 heard Lungs: clear to auscultation bilaterally Abdomen: soft , nontender, nondistended, bowel sounds positive Extremities: no edema clubbing or cyanosis Skin: no rash or lesions Neurologic: no gross focal deficits Psych: appropriate behavior, appropriate mood, corporative, judgment intact - Constitutional Vitals: Temp Pulse Resp BP Pulse Ox 99.7 F H 71 18 121/53 96 10/19/18 07:28 10/19/18 07:28 10/19/18 07:28 10/19/18 07:28 10/19/18 07:28 General appearance: Present: no acute distress Results - Labs CBC & Chem 7: 10/16/18 12:51 10/14/18 06:45 Labs: Laboratory Last Values WBC 4.8 K/mm3 (4.5-11.0) 10/16/18 12:51 RBC 4.41 M/mm3 (3.65-5.03) 10/16/18 12:51 Hgb 12.8 gm/dl (10.1-14.3) 10/16/18 12:51 Hct 39.2 % (30.3-42.9) 10/16/18 12:51 MCV 89 fl (79-97) 10/16/18 12:51 MCH 29 pg (28-32) 10/16/18 12:51 MCHC 33 % (30-34) 10/16/18 12:51 RDW 15.8 % (13.2-15.2) H 10/16/18 12:51 Plt Count 194 K/mm3 (140-440) 10/16/18 12:51 Lymph % (Auto) 22.3 % (13.4-35.0) 10/16/18 12:51 [place] % (Auto) 8.6 % (0.0-7.3) H 10/16/18 12:51 E[place] % (Auto) 2.3 % (0.0-4.3) 10/16/18 12:51 Baso % (Auto) 0.5 % (0.0-1.8) 10/16/18 12:51 Lymph # 1.1 K/mm3 (1.2-5.4) L 10/16/18 12:51 [place] # 0.4 K/mm3 (0.0-0.8) 10/16/18 12:51 Eos # 0.1 K/mm3 (0.0-0.4) 10/16/18 12:51 Baso # 0.0 K/mm3 (0.0-0.1) 10/16/18 12:51 Seg Neutrophils % 66.3 % (40.0-70.0) 10/16/18 12:51 Seg Neutrophils # 3.2 K/mm3 (1.8-7.7) 10/16/18 12:51 PT 13.2 Sec. (12.2-14.9) 10/13/18 14:38 INR 0.96 (0.87-1.13) 10/13/18 14:38 APTT 24.4 Sec. (24.2-36.6) 10/13/18 14:38 Sodium 140 mmol/L (137-145) 10/14/18 06:45 Potassium 4.1 mmol/L (3.6-5.0) 10/14/18 06:45 Chloride 103.4 mmol/L (98-107) 10/14/18 06:45 Carbon Dioxide 23 mmol/L (22-30) 10/14/18 06:45 Anion Gap 18 mmol/L 10/14/18 06:45 BUN 7 mg/dL (7-17) 10/14/18 06:45 Creatinine 1.0 mg/dL (0.7-1.2) 10/14/18 06:45 Estimated GFR > 60 ml/min 10/14/18 06:45 BUN/Creatinine Ratio 7 % 10/14/18 06:45 Glucose 115 mg/dL (65-100) H 10/14/18 06:45 Hemoglobin A1c 6.6 % (4-6) H 10/13/18 20:36 Calcium 9.0 mg/dL (8.4-10.2) 10/14/18 06:45 Magnesium 2.00 mg/dL (1.7-2.3) 10/13/18 14:38 Total Bilirubin 0.30 mg/dL (0.1-1.2) 10/14/18 06:45 AST 33 units/L (5-40) 10/14/18 06:45 ALT 13 units/L (7-56) 10/14/18 06:45 Alkaline Phosphatase 79 units/L (35-129) 10/14/18 06:45 Total Creatine Kinase 235 units/L (30-135) H 10/13/18 14:38 Troponin T < 0.010 ng/mL (0.00-0.029) 10/13/18 14:38 Total Protein 6.8 g/dL (6.3-8.2) 10/14/18 06:45 Albumin 3.8 g/dL (3.9-5) L 10/14/18 06:45 Albumin/Globulin Ratio 1.3 % 10/14/18 06:45 Lipase 13 units/L (13-60) 10/13/18 14:38 HCG, Quant 3.30 mIU/mL (0-4) 10/13/18 14:38 Urine Color Straw (Yellow) 10/17/18 14:45 Urine Turbidity Clear (Clear) 10/17/18 14:45 Urine pH 7.0 (5.0-7.0) 10/17/18 14:45 Ur Specific [place] 1.003 (1.003-1.030) 10/17/18 14:45 Urine Protein <15 mg/dl mg/dL (Negative) 10/17/18 14:45 Urine Glucose (UA) Neg mg/dL (Negative) 10/17/18 14:45 Urine Ketones Neg mg/dL (Negative) 10/17/18 14:45 Urine Blood Sm (Negative) 10/17/18 14:45 Urine Nitrite Neg (Negative) 10/17/18 14:45 Urine Bilirubin Neg (Negative) 10/17/18 14:45 Urine Urobilinogen < 2.0 mg/dL (<2.0) 10/17/18 14:45 Ur Leukocyte Esterase Neg (Negative) 10/17/18 14:45 Urine WBC (Auto) 1.0 /HPF (0.0-6.0) 10/17/18 14:45 Urine RBC (Auto) < 1.0 /HPF (0.0-6.0) 10/17/18 14:45 U Epithel Cells (Auto) 1.0 /HPF (0-13.0) 10/17/18 14:45 Urine Bacteria (Auto) 1+ /HPF (Negative) 10/17/18 14:45 Urine Mucus Few /HPF 10/13/18 13:49 Blood Type O POSITIVE 10/13/18 14:38 Antibody Screen Negative 10/13/18 14:38
--- NOTE | 2018-10-19 10:54 | Progress Note ---
Assessment and Plan Pt status quo. same complaints (cough, chest "pain/burning), FFI. neg N or V + BM's Abd soft, non tender r/o GERD? r/o biliary colic? low fat diet [facility] po Pepcid continue present care Objective Vital Signs - 12hr 10/18/18 10/19/18 10/19/18 23:38 00:04 04:42 Temperature 100.3 F H 99.3 F Pulse Rate 89 73 Respiratory 18 20 18 Rate Blood Pressure 127/39 128/65 O2 Sat by Pulse 100 100 Oximetry 10/19/18 10/19/18 10/19/18 06:02 07:02 07:28 Temperature 99.7 F H Pulse Rate 71 Respiratory 18 20 18 Rate Blood Pressure 121/53 O2 Sat by Pulse 96 Oximetry - Labs 10/16/18 12:51 10/14/18 06:45
--- NOTE | 2018-10-19 12:35 | Progress Note ---
Assessment and Plan - Patient Problems (1) Cough Current Visit: Yes Status: Acute (2) GERD (gastroesophageal reflux disease) Current Visit: Yes Status: Acute (3) Acute appendicitis Current Visit: Yes Status: Acute Qualifiers: Acute appendicitis type: unspecified acute appendicitis type Qualified Code(s): K35.80 - Unspecified acute appendicitis (4) HTN (hypertension) Current Visit: Yes Status: Chronic (5) History of mitral valve prolapse Current Visit: Yes Status: Suspected Subjective Principal diagnosis: acute appendicitis; abnormal ECG Interval history: still w cough Objective Vital Signs - 12hr 10/19/18 10/19/18 10/19/18 04:42 06:02 07:02 Temperature 99.3 F Pulse Rate 73 Respiratory 18 18 20 Rate Blood Pressure 128/65 Blood Pressure [Left] O2 Sat by Pulse 100 Oximetry 10/19/18 10/19/18 10/19/18 07:28 12:00 12:12 Temperature 99.7 F H 98.2 F 98.2 F Pulse Rate 71 71 71 Respiratory 18 18 18 Rate Blood Pressure 121/53 Blood Pressure 135/73 [Left] O2 Sat by Pulse 96 98 98 Oximetry Constitutional: no acute distress Eyes: non-icteric ENT: oropharynx moist Neck: supple Effort: normal Ascultation: Bilateral: diminished breath sounds Cardiovascular: regular rate and rhythm Gastrointestinal: normoactive bowel sounds, soft Integumentary: normal Extremities: no cyanosis Neurologic: normal mental status CBC and BMP: 10/16/18 12:51 10/14/18 06:45 ABG, PT/INR, D-dimer: PT/INR, D-dimer PT 13.2 Sec. (12.2-14.9) 10/13/18 14:38 INR 0.96 (0.87-1.13) 10/13/18 14:38 Abnormal lab findings: Abnormal Labs 10/13/18 10/13/18 10/13/18 13:49 14:38 14:38 RDW 15.4 H Plt Count Lymph % (Auto) 10.8 L [place] % (Auto) Lymph # 0.8 L Seg Neutrophils % 87.3 H Glucose 145 H Hemoglobin A1c Total Creatine Kinase 235 H Albumin Urine pH 8.0 H 10/13/18 10/14/18 10/14/18 20:36 06:45 06:45 RDW 15.3 H Plt Count 102 L Lymph % (Auto) [place] % (Auto) Lymph # Seg Neutrophils % Glucose 115 H Hemoglobin A1c 6.6 H Total Creatine Kinase Albumin 3.8 L Urine pH 10/16/18 12:51 RDW 15.8 H Plt Count Lymph % (Auto) [place] % (Auto) 8.6 H Lymph # 1.1 L Seg Neutrophils % Glucose Hemoglobin A1c Total Creatine Kinase Albumin Urine pH Chest x-ray: report reviewed, image reviewed
[2018-10-19] MEDS: DILAUDID IV PRN (12:43)
[2018-10-19] MEDS: PROVENTIL IH SCH ×4 (13:30→20:27)
[2018-10-19] MEDS ORDERED: LASIX PO ONE (13:32)
--- NOTE | 2018-10-19 13:37 | XRay Report ---
FINAL REPORT PROCEDURE: XR CHEST ROUTINE 2V TECHNIQUE: PA and lateral chest radiographs were obtained. CPT 95378 HISTORY: persistent cough COMPARISON: No prior studies are available for comparison. FINDINGS: Heart: Normal. Mediastinum/Vessels: Normal. Lungs/Pleural space: No infiltrate, effusion, or pneumothorax. Bony thorax: No acute osseous abnormality. Other: IMPRESSION: No pulmonary infiltrates are identified.
[2018-10-19] MEDS ORDERED: ZITHROMAX PO SCH (14:00)
[2018-10-19] MEDS: ZITHROMAX 500 MG in NACL 0.9% 250ML 250 ML IV SCH (14:48)
[2018-10-19] MEDS ORDERED: SOLU-Medrol IV ONE ×2 (14:57→18:00)
[2018-10-19] MEDS: PULMICORT IH SCH ×2 (16:42→20:22)
[2018-10-19] MEDS: BROVANA NEBU IH SCH ×2 (16:43→20:22)
--- NOTE | 2018-10-19 17:09 | Ultrasound Report ---
FINAL REPORT PROCEDURE: US ABDOMEN LIMITED TECHNIQUE: Real-time sonography in multiple planes of the gallbladder fossa and CBD with imaging of the adjacent liver, pancreas, and right kidney was performed with image documentation. CPT 99524 HISTORY: FFI COMPARISON: No prior studies are available for comparison. FINDINGS: Liver: Normal size and echotexture with no evidence of cystic or solid mass lesion. Gallbladder: Fluid filled. No gallstones, wall thickening, pericholecystic fluid, or sonographic Murp hy's sign . Intrahepatic bile ducts: Normal . Extrahepatic bile ducts: Common bile duct measures 2 millimeters in caliber. Pancreas: Not well-visualized. Right kidney: Normal echotexture. No focal renal mass, calculus, or hydronephrosis. Other: No free fluid. Aorta is slightly ectatic, measuring up to 2.7 centimeters in transverse dimension proximally IMPRESSION: No sonographic evidence of cholelithiasis or cholecystitis. No biliary ductal dilatation
[2018-10-19] MEDS ORDERED: NARCAN 0.4 MG/1 ML ONE (18:12)
[2018-10-19 19:57] LABS: Hematocrit 35.9 % (30.3-42.9); Hemoglobin 11.9 gm/dl (10.1-14.3); Mean Corpuscular HGB Conc 33 % (30-34); Mean Corpuscular Volume 87 fl (79-97); Platelet Count 183 K/mm3 (140-440); Red Blood Count 4.11 M/mm3 (3.65-5.03); Red Cell Distribution Width 15.4 % (13.2-15.2)
[2018-10-19 20:32] LABS: BUN/Creatinine Ratio 3; Blood Urea Nitrogen 3 mg/dL (7-17); Calcium 8.6 mg/dL (8.4-10.2); Creatine Kinase MB 1.3 ng/mL (0.0-4.0); Hemolysis Index 3
--- NOTE | 2018-10-19 22:43 | XRay Report ---
FINAL REPORT EXAM: XR ABDOMEN 1V AP HISTORY: abdominal pain and vomiting TECHNIQUE: AP view of the abdomen PRIORS: None. FINDINGS: There is air seen within scattered mildly dilated left upper quadrant small bowel loops. There is jessica e gas within the colon which appears nondistended. No abnormal calcifications are identified. No shelly tional soft tissue abnormality seen. IMPRESSION: Mildly dilated left upper quadrant small bowel loops. Nonspecific pattern could reflect a mild ileus versus early small bowel obstruction. Continued followup recommended
[2018-10-20] MEDS: SODIUM CHLORIDE FLUSH SYRINGE 10 ML IV SCH ×3 (00:01→21:01)
[2018-10-20] MEDS: ROBITUSSIN AC PO SCH (00:01)
[2018-10-20] MEDS: TESSALON PERLES PO SCH ×4 (00:02→21:10)
--- NOTE | 2018-10-20 00:12 | Cat Scan Report ---
FINAL REPORT PROCEDURE: CT ANGIO CHEST TECHNIQUE: Computerized axial tomographic angiography of the chest and pulmonary arteries was perfor med after the IV injection of iodinated nonionic contrast. The image data was postprocessed using max imum intensity projection (MIP) and 2-dimensional multiplanar reformatted (MPR) techniques. The exami nation is specifically tailored to the evaluation of the pulmonary arteries per clinical request. HISTORY: Short of breath 786.09, chest pain 786.50, chest pain, sob, cough COMPARISON: No prior studies are available for comparison. FINDINGS: Heart and pericardium: Normal. Thoracic aorta: There is no thoracic aortic aneurysm or dissection. Pulmonary vasculature: There is no pulmonary embolism. Lymph nodes: No enlarged thoracic lymph nodes. Lungs: There are bilateral lower lobe pulmonary infiltrates greater on the left.. Pleural space: No effusion, thickening, or pneumothorax. Musculoskeletal structures: No significant abnormality. Upper abdominal structures: No significant abnormality. IMPRESSION: There is no thoracic aortic aneurysm or dissection. There is no pulmonary embolism. There are bilateral lower lobe pulmonary infiltrates greater on the left.. There is no pleural effusi on or pneumothorax. .
[2018-10-20 01:35] LABS: BUN/Creatinine Ratio 4; Blood Urea Nitrogen 4 mg/dL (7-17); Calcium 9.1 mg/dL (8.4-10.2); Hemolysis Index 10
[2018-10-20] MEDS: D5/0.45NS 1,000 ML IV SCH (06:13)
[2018-10-20 06:30] LABS: Alanine Aminotransferase 22 units/L (7-56); Albumin 3.6 g/dL (3.9-5); BUN/Creatinine Ratio 5; Blood Urea Nitrogen 5 mg/dL (7-17); Calcium 9.1 mg/dL (8.4-10.2); Hemolysis Index 5
[2018-10-20] MEDS ORDERED: VANCOMYCIN PHARMACY TO DOSE IV SCH (07:00)
[2018-10-20 07:07] LABS: Hemoglobin 12.6 gm/dl (10.1-14.3); Mean Corpuscular HGB Conc 33 % (30-34); Mean Corpuscular Volume 88 fl (79-97); Platelet Count 180 K/mm3 (140-440); Red Blood Count 4.33 M/mm3 (3.65-5.03); Red Cell Distribution Width 15.1 % (13.2-15.2)
[2018-10-20] MEDS: BROVANA NEBU IH SCH ×2 (07:56→20:19)
[2018-10-20] MEDS: PULMICORT IH SCH ×2 (07:56→20:19)
--- NOTE | 2018-10-20 08:12 | Progress Note ---
Assessment and Plan Pt states still nauseated. on O2 Abd soft, non tender very low wbc? GB US neg CTA neg viral syndrome? persistent nausea GERD? PUD? repeat wbc CT abd with po contrast today Selected Entries 10/19/18 10/20/18 10/20/18 07:28 06:55 07:00 Temperature 99.7 F H 97.7 F Pulse Rate 71 61 Respiratory 18 Rate Blood Pressure 121/53 140/75 Laboratory Tests 10/20/18 10/20/18 05:49 06:47 WBC 1.8 L* Hgb 12.6 Hct 38.0 Plt Count 180 Sodium 141 Potassium 3.7 Chloride 103.0 Carbon Dioxide 23 BUN 5 L Creatinine 1.0 Objective Vital Signs - 12hr 10/19/18 10/19/18 10/19/18 20:28 20:29 20:43 Temperature Pulse Rate Pulse Rate [ 112 H 113 H Anterior] Pulse Rate [ Throughout] Respiratory Rate Respiratory 22 22 Rate [Anterior] Respiratory Rate [ Throughout] Blood Pressure O2 Sat by Pulse 96 Oximetry 10/19/18 10/20/18 10/20/18 23:55 04:23 06:55 Temperature 98.3 F 98.2 F 97.7 F Pulse Rate 74 60 46 L Pulse Rate [ Anterior] Pulse Rate [ Throughout] Respiratory 18 18 16 Rate Respiratory Rate [Anterior] Respiratory Rate [ Throughout] Blood Pressure 146/84 133/69 140/75 O2 Sat by Pulse 100 98 97 Oximetry 10/20/18 10/20/18 07:00 07:58 Temperature Pulse Rate 61 Pulse Rate [ 81 Anterior] Pulse Rate [ 86 Throughout] Respiratory Rate Respiratory 16 Rate [Anterior] Respiratory 16 Rate [ Throughout] Blood Pressure O2 Sat by Pulse 97 Oximetry - Labs 10/20/18 06:47 10/20/18 05:49 Diabetes panel 10/19/18 10/20/18 10/20/18 Range/Units 19:45 00:33 05:49 Sodium 137 140 141 (137-145) mmol/L Potassium 3.4 L 3.6 3.7 (3.6-5.0) mmol/L Chloride 102.0 101.8 103.0 (98-107) mmol/L Carbon Dioxide 25 25 23 (22-30) mmol/L BUN 3 L 4 L 5 L (7-17) mg/dL Creatinine 1.1 1.0 1.0 (0.7-1.2) mg/dL Glucose 113 H 158 H 168 H (65-100) mg/dL Calcium 8.6 9.1 9.1 (8.4-10.2) mg/dL AST 21 (5-40) units/L ALT 22 (7-56) units/L Alkaline Phosphatase 69 (35-129) units/L Total Protein 7.1 (6.3-8.2) g/dL Albumin 3.6 L (3.9-5) g/dL Calcium panel 10/19/18 10/20/18 10/20/18 Range/Units 19:45 00:33 05:49 Calcium 8.6 9.1 9.1 (8.4-10.2) mg/dL Albumin 3.6 L (3.9-5) g/dL Pituitary panel 10/19/18 10/20/18 10/20/18 Range/Units 19:45 00:33 05:49 Sodium 137 140 141 (137-145) mmol/L Potassium 3.4 L 3.6 3.7 (3.6-5.0) mmol/L Chloride 102.0 101.8 103.0 (98-107) mmol/L Carbon Dioxide 25 25 23 (22-30) mmol/L BUN 3 L 4 L 5 L (7-17) mg/dL Creatinine 1.1 1.0 1.0 (0.7-1.2) mg/dL Glucose 113 H 158 H 168 H (65-100) mg/dL Calcium 8.6 9.1 9.1 (8.4-10.2) mg/dL Adrenal panel 10/19/18 10/20/18 10/20/18 Range/Units 19:45 00:33 05:49 Sodium 137 140 141 (137-145) mmol/L Potassium 3.4 L 3.6 3.7 (3.6-5.0) mmol/L Chloride 102.0 101.8 103.0 (98-107) mmol/L Carbon Dioxide 25 25 23 (22-30) mmol/L BUN 3 L 4 L 5 L (7-17) mg/dL Creatinine 1.1 1.0 1.0 (0.7-1.2) mg/dL Glucose 113 H 158 H 168 H (65-100) mg/dL Calcium 8.6 9.1 9.1 (8.4-10.2) mg/dL Total Bilirubin 0.20 (0.1-1.2) mg/dL AST 21 (5-40) units/L ALT 22 (7-56) units/L Alkaline Phosphatase 69 (35-129) units/L Total Protein 7.1 (6.3-8.2) g/dL Albumin 3.6 L (3.9-5) g/dL
[2018-10-20 08:32] LABS: Basophils % (Manual) 0 % (0.0-1.8); Eosinophils % (Manual) 0 % (0.0-4.3); Total Cells Counted 100
[2018-10-20] MEDS: ZITHROMAX 500 MG in NACL 0.9% 250ML 250 ML IV SCH ×2 (08:33→10:59)
[2018-10-20 08:34] LABS: Anisocytosis 1+
[2018-10-20 08:35] LABS: Ovalocytes Few; Platelet Estimate Consistent w Auto; Poikilocytosis 1+
[2018-10-20] MEDS: SOLU-Medrol IV SCH ×2 (08:36→10:00)
[2018-10-20] MEDS ORDERED: VANCOMYCIN 1,750 MG in NACL 0.9% 500 ML 500 ML IV NR (09:00)
[2018-10-20] MEDS: MAXIPIME/NS 2 GM/100 ML 2 GM/100 ML BAG IV SCH ×3 (09:40→21:02)
[2018-10-20] MEDS: FLONASE NS SCH (10:00)
[2018-10-20 10:01] LABS: Basophils % (Auto) 0.4 % (0.0-1.8); Eosinophils % (Auto) 0.2 % (0.0-4.3); Hematocrit 37.3 % (30.3-42.9); Hemoglobin 12.4 gm/dl (10.1-14.3); Lymphocytes # (Auto) 0.8 K/mm3 (1.2-5.4); Lymphocytes % (Auto) 33.2 % (13.4-35.0); Mean Corpuscular HGB Conc 33 % (30-34); Mean Corpuscular Volume 88 fl (79-97); Monocytes # (Auto) 0.2 K/mm3 (0.0-0.8); Monocytes % (Auto) 8.6 % (0.0-7.3); Platelet Count 199 K/mm3 (140-440); Red Blood Count 4.23 M/mm3 (3.65-5.03); Red Cell Distribution Width 15.1 % (13.2-15.2)
--- NOTE | 2018-10-20 11:41 | Progress Note ---
Assessment and Plan 48 y/o female s/p ex-lap for appendicitis, now with cough and fever. 1. CTA shows now PE, but "infiltrate" in lower lobes. I feel this is likely more atelectasis than a true infiltrate from infection. Long discussion at bedside about IS use and its importance. I dont usually like to suppress the cough, but given the pain patient is having from this, will offer tessalon perles. Encouraged OOB to chair and mobility as tolerated to help with lung function. 2. All others per primary team. Subjective Date of service: 10/20/18 Principal diagnosis: acute appendicitis; abnormal ECG Interval history: patient complains of nausea and continued cough. States that she had a bad reaction to narcs yesterday. Sitting up on side of bed now about to brush teeth. Son at bedside. Did not use Incentive bob yesterday. Objective Vital Signs - 12hr 10/19/18 10/20/18 10/20/18 23:55 04:23 06:55 Temperature 98.3 F 98.2 F 97.7 F Pulse Rate 74 60 46 L Pulse Rate [ Anterior] Pulse Rate [ Throughout] Respiratory 18 18 16 Rate Respiratory Rate [Anterior] Respiratory Rate [ Throughout] Blood Pressure 146/84 133/69 140/75 O2 Sat by Pulse 100 98 97 Oximetry 10/20/18 10/20/18 10/20/18 07:00 07:58 11:16 Temperature Pulse Rate 61 Pulse Rate [ 81 Anterior] Pulse Rate [ 86 Throughout] Respiratory Rate Respiratory 16 Rate [Anterior] Respiratory 16 Rate [ Throughout] Blood Pressure O2 Sat by Pulse 97 98 Oximetry Constitutional: no acute distress Eyes: non-icteric ENT: oropharynx moist Neck: supple Effort: normal Ascultation: Bilateral: diminished breath sounds Cardiovascular: regular rate and rhythm Gastrointestinal: normoactive bowel sounds, soft Integumentary: normal Extremities: no cyanosis Neurologic: normal mental status CBC and BMP: 10/20/18 09:40 10/20/18 05:49 ABG, PT/INR, D-dimer: PT/INR, D-dimer PT 13.2 Sec. (12.2-14.9) 10/13/18 14:38 INR 0.96 (0.87-1.13) 10/13/18 14:38 Abnormal lab findings: Abnormal Labs 10/13/18 10/13/18 10/13/18 13:49 14:38 14:38 WBC RDW 15.4 H Plt Count Lymph % (Auto) 10.8 L [place] % (Auto) Lymph # 0.8 L Seg Neutrophils % 87.3 H Lymphocytes % (Manual) Seg Neutrophils # Seg Neutrophils # Man Lymphocytes # (Manual) Potassium BUN Glucose 145 H Hemoglobin A1c Total Creatine Kinase 235 H Albumin Urine pH 8.0 H 10/13/18 10/14/18 10/14/18 20:36 06:45 06:45 WBC RDW 15.3 H Plt Count 102 L Lymph % (Auto) [place] % (Auto) Lymph # Seg Neutrophils % Lymphocytes % (Manual) Seg Neutrophils # Seg Neutrophils # Man Lymphocytes # (Manual) Potassium BUN Glucose 115 H Hemoglobin A1c 6.6 H Total Creatine Kinase Albumin 3.8 L Urine pH 10/16/18 10/19/18 10/19/18 12:51 19:45 19:45 WBC 3.9 L RDW 15.8 H 15.4 H Plt Count Lymph % (Auto) [place] % (Auto) 8.6 H Lymph # 1.1 L Seg Neutrophils % Lymphocytes % (Manual) Seg Neutrophils # Seg Neutrophils # Man Lymphocytes # (Manual) Potassium 3.4 L BUN 3 L Glucose 113 H Hemoglobin A1c Total Creatine Kinase 195 H Albumin Urine pH 10/20/18 10/20/18 10/20/18 00:33 05:49 06:47 WBC 1.8 L* RDW Plt Count Lymph % (Auto) [place] % (Auto) Lymph # Seg Neutrophils % Lymphocytes % (Manual) 37.0 H Seg Neutrophils # Seg Neutrophils # Man 1.1 L Lymphocytes # (Manual) 0.7 L Potassium BUN 4 L 5 L Glucose 158 H 168 H Hemoglobin A1c Total Creatine Kinase Albumin 3.6 L Urine pH 10/20/18 09:40 WBC 2.4 L RDW Plt Count Lymph % (Auto) [place] % (Auto) 8.6 H Lymph # 0.8 L Seg Neutrophils % Lymphocytes % (Manual) Seg Neutrophils # 1.4 L Seg Neutrophils # Man Lymphocytes # (Manual) Potassium BUN Glucose Hemoglobin A1c Total Creatine Kinase Albumin Urine pH
[2018-10-20] MEDS: NORCO 5/325 PO PRN ×2 (13:06→21:58)
[2018-10-20] MEDS: PROVENTIL IH SCH ×3 (13:32→20:19)
[2018-10-20] MEDS: PEPCID PO SCH ×4 (16:06→23:24)
[2018-10-20] MEDS: VANCOMYCIN 1,250 MG in NACL 0.9% 250ML 250 ML IV SCH (21:02)
[2018-10-21] MEDS: MAXIPIME/NS 2 GM/100 ML 2 GM/100 ML BAG IV SCH ×3 (05:17→21:57)
[2018-10-21] MEDS: TESSALON PERLES PO SCH ×3 (05:17→21:57)
--- NOTE | 2018-10-21 06:36 | Progress Note ---
Assessment and Plan Pt refused CT yesterday but states "feeling better today" Feels that probably pain meds was what was making her feel nauseus. Abd soft, non tender leukopenia secondary to ? surgically stable limit po narcotics as per med & pulm Selected Entries 10/21/18 10/21/18 04:05 04:06 Temperature 97.2 F L Pulse Rate 53 L Respiratory 18 Rate Blood Pressure 122/69 Laboratory Tests 10/20/18 10/20/18 06:47 09:40 WBC 1.8 L* 2.4 L Hgb 12.6 12.4 Hct 38.0 37.3 Objective Vital Signs - 12hr 10/20/18 10/20/18 10/20/18 19:37 20:22 20:35 Temperature Pulse Rate 75 Pulse Rate [ 86 87 Anterior] Respiratory 18 Rate Respiratory 20 20 Rate [Anterior] Blood Pressure 149/89 Blood Pressure [Left] O2 Sat by Pulse 99 97 Oximetry 10/20/18 10/20/18 10/20/18 21:02 22:00 23:51 Temperature 99.1 F Pulse Rate 77 Pulse Rate [ Anterior] Respiratory Rate Respiratory Rate [Anterior] Blood Pressure Blood Pressure [Left] O2 Sat by Pulse 98 99 Oximetry 10/20/18 10/21/18 10/21/18 23:52 00:39 04:05 Temperature 98.5 F 97.2 F L Pulse Rate 75 82 53 L Pulse Rate [ Anterior] Respiratory 17 18 Rate Respiratory Rate [Anterior] Blood Pressure 122/69 Blood Pressure 141/85 [Left] O2 Sat by Pulse 99 99 97 Oximetry 10/21/18 04:06 Temperature Pulse Rate 53 L Pulse Rate [ Anterior] Respiratory Rate Respiratory Rate [Anterior] Blood Pressure Blood Pressure [Left] O2 Sat by Pulse 97 Oximetry - Labs 10/20/18 09:40 10/20/18 05:49
--- NOTE | 2018-10-21 09:20 | Progress Note ---
Assessment and Plan 48 y/o female s/p ex-lap for appendicitis, now with cough and fever. 1. Removed oxygen and asked nursing to recheck pulse ox in about 20 minutes. If less than 88 they will return the oxygen and let me know 2. Continue IS use multiple times per hour throughout the day while awake 3. All others per primary team. Subjective Date of service: 10/21/18 Principal diagnosis: acute appendicitis; abnormal ECG Interval history: patient feels much better today. Up eating. Used the IS several times yesterday but explained that she needs to use it more. cough has improved. Still on oxygen. Objective Vital Signs - 12hr 10/20/18 10/20/18 10/20/18 22:00 23:51 23:52 Temperature Pulse Rate 77 75 Respiratory Rate Blood Pressure Blood Pressure [Left] O2 Sat by Pulse 98 99 99 Oximetry 10/21/18 10/21/18 10/21/18 00:39 04:05 04:06 Temperature 98.5 F 97.2 F L Pulse Rate 82 53 L 53 L Respiratory 17 18 Rate Blood Pressure 122/69 Blood Pressure 141/85 [Left] O2 Sat by Pulse 99 97 97 Oximetry 10/21/18 07:35 Temperature 98.2 F Pulse Rate 66 Respiratory 18 Rate Blood Pressure 141/73 Blood Pressure [Left] O2 Sat by Pulse 95 Oximetry Constitutional: no acute distress Eyes: non-icteric ENT: oropharynx moist Neck: supple Effort: normal Ascultation: Bilateral: diminished breath sounds Cardiovascular: regular rate and rhythm Gastrointestinal: normoactive bowel sounds, soft Integumentary: normal Extremities: no cyanosis Neurologic: normal mental status CBC and BMP: 10/20/18 09:40 10/20/18 05:49 ABG, PT/INR, D-dimer: PT/INR, D-dimer PT 13.2 Sec. (12.2-14.9) 10/13/18 14:38 INR 0.96 (0.87-1.13) 10/13/18 14:38 Abnormal lab findings: Abnormal Labs 10/13/18 10/13/18 10/13/18 13:49 14:38 14:38 WBC RDW 15.4 H Plt Count Lymph % (Auto) 10.8 L [place] % (Auto) Lymph # 0.8 L Seg Neutrophils % 87.3 H Lymphocytes % (Manual) Seg Neutrophils # Seg Neutrophils # Man Lymphocytes # (Manual) Potassium BUN Glucose 145 H Hemoglobin A1c Total Creatine Kinase 235 H Albumin Urine pH 8.0 H 10/13/18 10/14/18 10/14/18 20:36 06:45 06:45 WBC RDW 15.3 H Plt Count 102 L Lymph % (Auto) [place] % (Auto) Lymph # Seg Neutrophils % Lymphocytes % (Manual) Seg Neutrophils # Seg Neutrophils # Man Lymphocytes # (Manual) Potassium BUN Glucose 115 H Hemoglobin A1c 6.6 H Total Creatine Kinase Albumin 3.8 L Urine pH 10/16/18 10/19/18 10/19/18 12:51 19:45 19:45 WBC 3.9 L RDW 15.8 H 15.4 H Plt Count Lymph % (Auto) [place] % (Auto) 8.6 H Lymph # 1.1 L Seg Neutrophils % Lymphocytes % (Manual) Seg Neutrophils # Seg Neutrophils # Man Lymphocytes # (Manual) Potassium 3.4 L BUN 3 L Glucose 113 H Hemoglobin A1c Total Creatine Kinase 195 H Albumin Urine pH 10/20/18 10/20/18 10/20/18 00:33 05:49 06:47 WBC 1.8 L* RDW Plt Count Lymph % (Auto) [place] % (Auto) Lymph # Seg Neutrophils % Lymphocytes % (Manual) 37.0 H Seg Neutrophils # Seg Neutrophils # Man 1.1 L Lymphocytes # (Manual) 0.7 L Potassium BUN 4 L 5 L Glucose 158 H 168 H Hemoglobin A1c Total Creatine Kinase Albumin 3.6 L Urine pH 10/20/18 09:40 WBC 2.4 L RDW Plt Count Lymph % (Auto) [place] % (Auto) 8.6 H Lymph # 0.8 L Seg Neutrophils % Lymphocytes % (Manual) Seg Neutrophils # 1.4 L Seg Neutrophils # Man Lymphocytes # (Manual) Potassium BUN Glucose Hemoglobin A1c Total Creatine Kinase Albumin Urine pH
[2018-10-21] MEDS: BROVANA NEBU IH SCH ×2 (09:25→21:34)
[2018-10-21] MEDS: PROVENTIL IH SCH ×3 (09:25→21:34)
[2018-10-21] MEDS: PULMICORT IH SCH ×2 (09:25→21:34)
[2018-10-21] MEDS: SOLU-Medrol IV SCH (09:51)
[2018-10-21] MEDS: PEPCID PO SCH ×2 (09:51→21:57)
[2018-10-21] MEDS: NORCO 5/325 PO PRN ×2 (09:52→20:25)
[2018-10-21] MEDS: ZITHROMAX 500 MG in NACL 0.9% 250ML 250 ML IV SCH (09:55)
[2018-10-21] MEDS: VANCOMYCIN 1,250 MG in NACL 0.9% 250ML 250 ML IV SCH ×2 (11:04→22:56)
[2018-10-21] MEDS: FLONASE NS SCH (11:08)
[2018-10-21] MEDS: SODIUM CHLORIDE FLUSH SYRINGE 10 ML IV SCH ×2 (11:09→21:58)
--- NOTE | 2018-10-21 12:01 | Progress Note ---
Assessment and Plan Assessment and plan: 48F with past medical history of MVP who pw RLQ pain. She was diagnosed with acute appendicitis. She received appendectomy, she improved and her diet was advanced per general surgery. After which she developed coughing and postnasal drip, she was treated symptomatically. She was seen by cardiology for right bundle branch block, and he recommended conservative management. The patient received IV morphine and IV Dilaudid and had a very bad reaction to it, she had intractable nausea and vomiting. After she vomited she likely aspirated and developed aspiration pneumonia. SHe is currently on antibiotics for treatment of that. The patient will be discharged home when she is afebrile and clinic ally improved, obtaining a rapid flu today patient complained about poor nursing care, Delia Vail, patient satisfaction liaison was called on 10/20/18 Diagnoses Acute appendicitis Ileus, resolved elevated BP; due to acute illness, improving, cont to monitor RBB block. post nasal drip and cough, reactive airway disease; Aspiration pneumonia Sepsis History Interval history: Review of systems Constitutional: had low grade fevers, no malaise, no joint pains CVS: No chest pain, no orthopnea, no dyspnea on exertion, no pedal edema GI: abdominal pain is improved, no diarrhea, was vomiting yesterday but now resolved, no constipation Respiratory: No shortness of breath, no wheezing, c/o dry coughing, and post nasal drip Hospitalist Physical - Physical exam Narrative exam: General.: Appears well, no distress, nontoxic HEENT: Moist mucous membranes, extraocular muscles intact, no lymphadenopathy Neck: supple Cardiac: S1-S2 heard Lungs: bibasilar crackles Abdomen: soft , nontender, nondistended, bowel sounds positive Extremities: no edema clubbing or cyanosis Skin: no rash or lesions Neurologic: no gross focal deficits Psych: appropriate behavior, appropriate mood, corporative, judgment intact - Constitutional Vitals: Temp Pulse Resp BP Pulse Ox 98.1 F 98 H 14 121/66 94 10/21/18 11:02 10/21/18 11:00 10/21/18 11:02 10/21/18 11:02 10/21/18 11:00 General appearance: Present: no acute distress Results - Labs CBC & Chem 7: 10/20/18 09:40 10/20/18 05:49 Labs: Laboratory Last Values WBC 2.4 K/mm3 (4.5-11.0) L 10/20/18 09:40 RBC 4.23 M/mm3 (3.65-5.03) 10/20/18 09:40 Hgb 12.4 gm/dl (10.1-14.3) 10/20/18 09:40 Hct 37.3 % (30.3-42.9) 10/20/18 09:40 MCV 88 fl (79-97) 10/20/18 09:40 MCH 29 pg (28-32) 10/20/18 09:40 MCHC 33 % (30-34) 10/20/18 09:40 RDW 15.1 % (13.2-15.2) 10/20/18 09:40 Plt Count 199 K/mm3 (140-440) 10/20/18 09:40 Lymph % (Auto) 33.2 % (13.4-35.0) 10/20/18 09:40 [place] % (Auto) 8.6 % (0.0-7.3) H 10/20/18 09:40 Eos % (Auto) 0.2 % (0.0-4.3) 10/20/18 09:40 Baso % (Auto) 0.4 % (0.0-1.8) 10/20/18 09:40 Lymph # 0.8 K/mm3 (1.2-5.4) L 10/20/18 09:40 [place] # 0.2 K/mm3 (0.0-0.8) 10/20/18 09:40 Eos # 0.0 K/mm3 (0.0-0.4) 10/20/18 09:40 Baso # 0.0 K/mm3 (0.0-0.1) 10/20/18 09:40 Add Manual Diff Complete 10/20/18 06:47 Total Counted 100 10/20/18 06:47 Seg Neutrophils % 57.6 % (40.0-70.0) 10/20/18 09:40 Seg Neuts % (Manual) 62.0 % (40.0-70.0) 10/20/18 06:47 Band Neutrophils % 0 % 10/20/18 06:47 Lymphocytes % (Manual) 37.0 % (13.4-35.0) H 10/20/18 06:47 Reactive Lymphs % (Man) 0 % 10/20/18 06:47 Monocytes % (Manual) 1.0 % (0.0-7.3) 10/20/18 06:47 Eosinophils % (Manual) 0 % (0.0-4.3) 10/20/18 06:47 Basophils % (Manual) 0 % (0.0-1.8) 10/20/18 06:47 Metamyelocytes % 0 % 10/20/18 06:47 Myelocytes % 0 % 10/20/18 06:47 Promyelocytes % 0 % 10/20/18 06:47 Blast Cells % 0 % 10/20/18 06:47 Nucleated RBC % Not Reportable 10/20/18 06:47 Seg Neutrophils # 1.4 K/mm3 (1.8-7.7) L 10/20/18 09:40 Seg Neutrophils # Man 1.1 K/mm3 (1.8-7.7) L 10/20/18 06:47 Band Neutrophils # 0.0 K/mm3 10/20/18 06:47 Lymphocytes # (Manual) 0.7 K/mm3 (1.2-5.4) L 10/20/18 06:47 Abs React Lymphs (Man) 0.0 K/mm3 10/20/18 06:47 Monocytes # (Manual) 0.0 K/mm3 (0.0-0.8) 10/20/18 06:47 Eosinophils # (Manual) 0.0 K/mm3 (0.0-0.4) 10/20/18 06:47 Basophils # (Manual) 0.0 K/mm3 (0.0-0.1) 10/20/18 06:47 Metamyelocytes # 0.0 K/mm3 10/20/18 06:47 Myelocytes # 0.0 K/mm3 10/20/18 06:47 Promyelocytes # 0.0 K/mm3 10/20/18 06:47 Blast Cells # 0.0 K/mm3 10/20/18 06:47 WBC Morphology Not Reportable 10/20/18 06:47 Hypersegmented Neuts Not Reportable 10/20/18 06:47 Hyposegmented Neuts Not Reportable 10/20/18 06:47 Hypogranular Neuts Not Reportable 10/20/18 06:47 Smudge Cells Not Reportable 10/20/18 06:47 Toxic Granulation Not Reportable 10/20/18 06:47 Toxic Vacuolation Not Reportable 10/20/18 06:47 Dohle Bodies Not Reportable 10/20/18 06:47 Pelger-Huet Anomaly Not Reportable 10/20/18 06:47 Jerzy Rods Not Reportable 10/20/18 06:47 Platelet Estimate Consistent w auto 10/20/18 06:47 Clumped Platelets Not Reportable 10/20/18 06:47 Plt Clumps, EDTA Not Reportable 10/20/18 06:47 Large Platelets Not Reportable 10/20/18 06:47 Giant Platelets Not Reportable 10/20/18 06:47 Platelet Satelliting Not Reportable 10/20/18 06:47 Plt Morphology Comment Not Reportable 10/20/18 06:47 RBC Morphology Not Reportable 10/20/18 06:47 Dimorphic RBCs Not Reportable 10/20/18 06:47 Polychromasia Not Reportable 10/20/18 06:47 Hypochromasia Not Reportable 10/20/18 06:47 Poikilocytosis 1+ 10/20/18 06:47 Anisocytosis 1+ 10/20/18 06:47 Microcytosis Not Reportable 10/20/18 06:47 Macrocytosis Not Reportable 10/20/18 06:47 Spherocytes Not Reportable 10/20/18 06:47 Pappenheimer Bodies Not Reportable 10/20/18 06:47 Sickle Cells Not Reportable 10/20/18 06:47 Target Cells Not Reportable 10/20/18 06:47 Tear Drop Cells Not Reportable 10/20/18 06:47 Ovalocytes Few 10/20/18 06:47 Helmet Cells Not Reportable 10/20/18 06:47 [place] [facility] [place] Bodies Not Reportable 10/20/18 06:47 Wayne Rings Not Reportable 10/20/18 06:47 Patrick Cells Not Reportable 10/20/18 06:47 Bite Cells Not Reportable 10/20/18 06:47 Crenated Cell Not Reportable 10/20/18 06:47 Elliptocytes Not Reportable 10/20/18 06:47 Acanthocytes (Spur) Not Reportable 10/20/18 06:47 Rouleaux Not Reportable 10/20/18 06:47 Hemoglobin C Crystals Not Reportable 10/20/18 06:47 Schistocytes Not Reportable 10/20/18 06:47 Malaria parasites Not Reportable 10/20/18 06:47 Ricardo Bodies Not Reportable 10/20/18 06:47 Hem Pathologist Commnt No 10/20/18 06:47 PT 13.2 Sec. (12.2-14.9) 10/13/18 14:38 INR 0.96 (0.87-1.13) 10/13/18 14:38 APTT 24.4 Sec. (24.2-36.6) 10/13/18 14:38 Sodium 141 mmol/L (137-145) 10/20/18 05:49 Potassium 3.7 mmol/L (3.6-5.0) 10/20/18 05:49 Chloride 103.0 mmol/L (98-107) 10/20/18 05:49 Carbon Dioxide 23 mmol/L (22-30) 10/20/18 05:49 Anion Gap 19 mmol/L 10/20/18 05:49 BUN 5 mg/dL (7-17) L 10/20/18 05:49 Creatinine 1.0 mg/dL (0.7-1.2) 10/20/18 05:49 Estimated GFR > 60 ml/min 10/20/18 05:49 BUN/Creatinine Ratio 5 % 10/20/18 05:49 Glucose 168 mg/dL (65-100) H 10/20/18 05:49 Hemoglobin A1c 6.6 % (4-6) H 10/13/18 20:36 Calcium 9.1 mg/dL (8.4-10.2) 10/20/18 05:49 Magnesium 2.00 mg/dL (1.7-2.3) 10/13/18 14:38 Total Bilirubin 0.20 mg/dL (0.1-1.2) 10/20/18 05:49 AST 21 units/L (5-40) 10/20/18 05:49 ALT 22 units/L (7-56) 10/20/18 05:49 Alkaline Phosphatase 69 units/L (35-129) 10/20/18 05:49 Total Creatine Kinase 195 units/L (30-135) H 10/19/18 19:45 CK-MB (CK-2) 1.3 ng/mL (0.0-4.0) 10/19/18 19:45 CK-MB (CK-2) Rel Index 0.6 (0-4) 10/19/18 19:45 Troponin T < 0.010 ng/mL (0.00-0.029) 10/19/18 19:45 Total Protein 7.1 g/dL (6.3-8.2) 10/20/18 05:49 Albumin 3.6 g/dL (3.9-5) L 10/20/18 05:49 Albumin/Globulin Ratio 1.0 % 10/20/18 05:49 Lipase 13 units/L (13-60) 10/13/18 14:38 HCG, Quant 3.30 mIU/mL (0-4) 10/13/18 14:38 Urine Color Straw (Yellow) 10/17/18 14:45 Urine Turbidity Clear (Clear) 10/17/18 14:45 Urine pH 7.0 (5.0-7.0) 10/17/18 14:45 Ur Specific [place] 1.003 (1.003-1.030) 10/17/18 14:45 Urine Protein <15 mg/dl mg/dL (Negative) 10/17/18 14:45 Urine Glucose (UA) Neg mg/dL (Negative) 10/17/18 14:45 Urine Ketones Neg mg/dL (Negative) 10/17/18 14:45 Urine Blood Sm (Negative) 10/17/18 14:45 Urine Nitrite Neg (Negative) 10/17/18 14:45 Urine Bilirubin Neg (Negative) 10/17/18 14:45 Urine Urobilinogen < 2.0 mg/dL (<2.0) 10/17/18 14:45 Ur Leukocyte Esterase Neg (Negative) 10/17/18 14:45 Urine WBC (Auto) 1.0 /HPF (0.0-6.0) 10/17/18 14:45 Urine RBC (Auto) < 1.0 /HPF (0.0-6.0) 10/17/18 14:45 U Epithel Cells (Auto) 1.0 /HPF (0-13.0) 10/17/18 14:45 Urine Bacteria (Auto) 1+ /HPF (Negative) 10/17/18 14:45 Urine Mucus Few /HPF 10/13/18 13:49 Blood Type O POSITIVE 10/13/18 14:38 Antibody Screen Negative 10/13/18 14:38
[2018-10-22] MEDS: NORCO 5/325 PO PRN ×3 (05:29→21:40)
[2018-10-22] MEDS: TESSALON PERLES PO SCH ×3 (05:29→21:40)
[2018-10-22] MEDS: MAXIPIME/NS 2 GM/100 ML 2 GM/100 ML BAG IV SCH ×3 (05:32→21:41)
--- NOTE | 2018-10-22 08:45 | Progress Note ---
Assessment and Plan 48 y/o female s/p ex-lap for appendicitis, now with cough and fever. 1. Fever resolved 2. Continue IS use 3. Mobilization 4. Will see as needed. Subjective Date of service: 10/22/18 Principal diagnosis: acute appendicitis; abnormal ECG Interval history: No acute events. Sats are good on room air. No fever. Objective Vital Signs - 12hr 10/21/18 10/21/18 10/21/18 21:36 21:37 21:55 Temperature Pulse Rate Pulse Rate [ 75 77 Anterior] Respiratory Rate Respiratory 18 20 Rate [Anterior] Blood Pressure O2 Sat by Pulse 100 Oximetry 10/21/18 10/22/18 10/22/18 22:13 05:02 08:28 Temperature 98.3 F 98.9 F Pulse Rate 54 L 60 Pulse Rate [ Anterior] Respiratory 20 18 Rate Respiratory Rate [Anterior] Blood Pressure 140/77 139/75 O2 Sat by Pulse 95 100 95 Oximetry Constitutional: no acute distress Eyes: non-icteric ENT: oropharynx moist Neck: supple Effort: normal Ascultation: Bilateral: diminished breath sounds Cardiovascular: regular rate and rhythm Gastrointestinal: normoactive bowel sounds, soft Integumentary: normal Extremities: no cyanosis Neurologic: normal mental status CBC and BMP: 10/20/18 09:40 10/20/18 05:49 ABG, PT/INR, D-dimer: PT/INR, D-dimer PT 13.2 Sec. (12.2-14.9) 10/13/18 14:38 INR 0.96 (0.87-1.13) 10/13/18 14:38 Abnormal lab findings: Abnormal Labs 10/13/18 10/13/18 10/13/18 13:49 14:38 14:38 WBC RDW 15.4 H Plt Count Lymph % (Auto) 10.8 L [place] % (Auto) Lymph # 0.8 L Seg Neutrophils % 87.3 H Lymphocytes % (Manual) Seg Neutrophils # Seg Neutrophils # Man Lymphocytes # (Manual) Potassium BUN Glucose 145 H Hemoglobin A1c Total Creatine Kinase 235 H Albumin Urine pH 8.0 H 10/13/18 10/14/18 10/14/18 20:36 06:45 06:45 WBC RDW 15.3 H Plt Count 102 L Lymph % (Auto) [place] % (Auto) Lymph # Seg Neutrophils % Lymphocytes % (Manual) Seg Neutrophils # Seg Neutrophils # Man Lymphocytes # (Manual) Potassium BUN Glucose 115 H Hemoglobin A1c 6.6 H Total Creatine Kinase Albumin 3.8 L Urine pH 10/16/18 10/19/18 10/19/18 12:51 19:45 19:45 WBC 3.9 L RDW 15.8 H 15.4 H Plt Count Lymph % (Auto) [place] % (Auto) 8.6 H Lymph # 1.1 L Seg Neutrophils % Lymphocytes % (Manual) Seg Neutrophils # Seg Neutrophils # Man Lymphocytes # (Manual) Potassium 3.4 L BUN 3 L Glucose 113 H Hemoglobin A1c Total Creatine Kinase 195 H Albumin Urine pH 10/20/18 10/20/18 10/20/18 00:33 05:49 06:47 WBC 1.8 L* RDW Plt Count Lymph % (Auto) [place] % (Auto) Lymph # Seg Neutrophils % Lymphocytes % (Manual) 37.0 H Seg Neutrophils # Seg Neutrophils # Man 1.1 L Lymphocytes # (Manual) 0.7 L Potassium BUN 4 L 5 L Glucose 158 H 168 H Hemoglobin A1c Total Creatine Kinase Albumin 3.6 L Urine pH 10/20/18 09:40 WBC 2.4 L RDW Plt Count Lymph % (Auto) [place] % (Auto) 8.6 H Lymph # 0.8 L Seg Neutrophils % Lymphocytes % (Manual) Seg Neutrophils # 1.4 L Seg Neutrophils # Man Lymphocytes # (Manual) Potassium BUN Glucose Hemoglobin A1c Total Creatine Kinase Albumin Urine pH
[2018-10-22] MEDS: PEPCID PO SCH ×2 (09:11→21:40)
[2018-10-22] MEDS: FLONASE NS SCH (09:12)
--- NOTE | 2018-10-22 10:22 | Progress Note ---
Assessment and Plan Pt status quo. no GI compl. betsey diet Abd soft, non tender surgically stable will follow prn rto 2 wks leukopenia, persistent cough w/u as per med. Objective Vital Signs - 12hr 10/22/18 10/22/18 05:02 08:28 Temperature 98.3 F 98.9 F Pulse Rate 54 L 60 Respiratory 20 18 Rate Blood Pressure 140/77 139/75 O2 Sat by Pulse 100 95 Oximetry - Labs 10/20/18 09:40 10/20/18 05:49
[2018-10-22] MEDS: BROVANA NEBU IH SCH ×2 (12:33→20:18)
[2018-10-22] MEDS: PROVENTIL IH SCH ×2 (12:40→22:44)
[2018-10-22] MEDS: PULMICORT IH SCH ×2 (12:40→20:18)
[2018-10-22] MEDS: SOLU-Medrol IV SCH (13:46)
[2018-10-22] MEDS: SODIUM CHLORIDE FLUSH SYRINGE 10 ML IV SCH ×2 (13:48→21:41)
[2018-10-22] MEDS: VANCOMYCIN 1,250 MG in NACL 0.9% 250ML 250 ML IV SCH ×2 (14:55→22:55)
[2018-10-22] MEDS: ZOFRAN IV PRN (15:59)
--- NOTE | 2018-10-22 21:18 | Progress Note ---
Assessment and Plan Assessment and plan: 48F with past medical history of MVP who pw RLQ pain. She was diagnosed with acute appendicitis. She received appendectomy, she improved and her diet was advanced per general surgery. After which she developed coughing and postnasal drip, she was treated symptomatically. She was seen by cardiology for right bundle branch block, and he recommended conservative management. The patient received IV morphine and IV Dilaudid and had a very bad reaction to it, she had intractable nausea and vomiting. After she vomited she likely aspirated and developed aspiration pneumonia. SHe is currently on antibiotics for treatment of that. The patient will be discharged home when she is afebrile and clinic ally improved, obtaining a rapid flu today patient complained about poor nursing care, Delia Vail, patient satisfaction liaison was called on 10/20/18 Diagnoses Acute appendicitis Ileus, resolved elevated BP; due to acute illness, improving, cont to monitor RBB block. post nasal drip and cough, reactive airway disease; Aspiration pneumonia Sepsis History Interval history: Review of systems Constitutional: had low grade fevers, no malaise, no joint pains CVS: No chest pain, no orthopnea, no dyspnea on exertion, no pedal edema GI: abdominal pain is improved, no diarrhea, no vomiting, no constipation Respiratory: No shortness of breath, no wheezing, c/o dry coughing, and post nasal drip Hospitalist Physical - Physical exam Narrative exam: General.: Appears well, no distress, nontoxic HEENT: Moist mucous membranes, extraocular muscles intact, no lymphadenopathy Neck: supple Cardiac: S1-S2 heard Lungs: bibasilar crackles Abdomen: soft , nontender, nondistended, bowel sounds positive Extremities: no edema clubbing or cyanosis Skin: no rash or lesions Neurologic: no gross focal deficits Psych: appropriate behavior, appropriate mood, corporative, judgment intact - Constitutional Vitals: Temp Pulse Resp BP Pulse Ox 99 F 69 18 145/97 94 10/22/18 20:17 10/22/18 20:18 10/22/18 20:18 10/22/18 20:17 10/22/18 20:20 General appearance: Present: no acute distress Results - Labs CBC & Chem 7: 10/20/18 09:40 10/20/18 05:49 Labs: Laboratory Last Values WBC 2.4 K/mm3 (4.5-11.0) L 01/14/19 09:40 RBC 4.23 M/mm3 (3.65-5.03) 10/20/18 09:40 Hgb 12.4 gm/dl (10.1-14.3) 10/20/18 09:40 Hct 37.3 % (30.3-42.9) 10/20/18 09:40 MCV 88 fl (79-97) 10/20/18 09:40 MCH 29 pg (28-32) 10/20/18 09:40 MCHC 33 % (30-34) 10/20/18 09:40 RDW 15.1 % (13.2-15.2) 10/20/18 09:40 Plt Count 199 K/mm3 (140-440) 10/20/18 09:40 Lymph % (Auto) 33.2 % (13.4-35.0) 10/20/18 09:40 [place] % (Auto) 8.6 % (0.0-7.3) H 10/20/18 09:40 Eos % (Auto) 0.2 % (0.0-4.3) 10/20/18 09:40 Baso % (Auto) 0.4 % (0.0-1.8) 10/20/18 09:40 Lymph # 0.8 K/mm3 (1.2-5.4) L 10/20/18 09:40 [place] # 0.2 K/mm3 (0.0-0.8) 10/20/18 09:40 Eos # 0.0 K/mm3 (0.0-0.4) 10/20/18 09:40 Baso # 0.0 K/mm3 (0.0-0.1) 10/20/18 09:40 Add Manual Diff Complete 10/20/18 06:47 Total Counted 100 10/20/18 06:47 Seg Neutrophils % 57.6 % (40.0-70.0) 10/20/18 09:40 Seg Neuts % (Manual) 62.0 % (40.0-70.0) 10/20/18 06:47 Band Neutrophils % 0 % 10/20/18 06:47 Lymphocytes % (Manual) 37.0 % (13.4-35.0) H 10/20/18 06:47 Reactive Lymphs % (Man) 0 % 10/20/18 06:47 Monocytes % (Manual) 1.0 % (0.0-7.3) 10/20/18 06:47 Eosinophils % (Manual) 0 % (0.0-4.3) 10/20/18 06:47 Basophils % (Manual) 0 % (0.0-1.8) 10/20/18 06:47 Metamyelocytes % 0 % 10/20/18 06:47 Myelocytes % 0 % 10/20/18 06:47 Promyelocytes % 0 % 10/20/18 06:47 Blast Cells % 0 % 10/20/18 06:47 Nucleated RBC % Not Reportable 10/20/18 06:47 Seg Neutrophils # 1.4 K/mm3 (1.8-7.7) L 10/20/18 09:40 Seg Neutrophils # Man 1.1 K/mm3 (1.8-7.7) L 10/20/18 06:47 Band Neutrophils # 0.0 K/mm3 10/20/18 06:47 Lymphocytes # (Manual) 0.7 K/mm3 (1.2-5.4) L 10/20/18 06:47 Abs React Lymphs (Man) 0.0 K/mm3 10/20/18 06:47 Monocytes # (Manual) 0.0 K/mm3 (0.0-0.8) 10/20/18 06:47 Eosinophils # (Manual) 0.0 K/mm3 (0.0-0.4) 10/20/18 06:47 Basophils # (Manual) 0.0 K/mm3 (0.0-0.1) 10/20/18 06:47 Metamyelocytes # 0.0 K/mm3 10/20/18 06:47 Myelocytes # 0.0 K/mm3 10/20/18 06:47 Promyelocytes # 0.0 K/mm3 10/20/18 06:47 Blast Cells # 0.0 K/mm3 10/20/18 06:47 WBC Morphology Not Reportable 10/20/18 06:47 Hypersegmented Neuts Not Reportable 10/20/18 06:47 Hyposegmented Neuts Not Reportable 10/20/18 06:47 Hypogranular Neuts Not Reportable 10/20/18 06:47 Smudge Cells Not Reportable 10/20/18 06:47 Toxic Granulation Not Reportable 10/20/18 06:47 Toxic Vacuolation Not Reportable 10/20/18 06:47 Dohle Bodies Not Reportable 10/20/18 06:47 Pelger-Huet Anomaly Not Reportable 10/20/18 06:47 Jerzy Rods Not Reportable 10/20/18 06:47 Platelet Estimate Consistent w auto 10/20/18 06:47 Clumped Platelets Not Reportable 10/20/18 06:47 Plt Clumps, EDTA Not Reportable 10/20/18 06:47 Large Platelets Not Reportable 10/20/18 06:47 Giant Platelets Not Reportable 10/20/18 06:47 Platelet Satelliting Not Reportable 10/20/18 06:47 Plt Morphology Comment Not Reportable 10/20/18 06:47 RBC Morphology Not Reportable 10/20/18 06:47 Dimorphic RBCs Not Reportable 10/20/18 06:47 Polychromasia Not Reportable 10/20/18 06:47 Hypochromasia Not Reportable 10/20/18 06:47 Poikilocytosis 1+ 10/20/18 06:47 Anisocytosis 1+ 10/20/18 06:47 Microcytosis Not Reportable 10/20/18 06:47 Macrocytosis Not Reportable 10/20/18 06:47 Spherocytes Not Reportable 10/20/18 06:47 Pappenheimer Bodies Not Reportable 10/20/18 06:47 Sickle Cells Not Reportable 10/20/18 06:47 Target Cells Not Reportable 10/20/18 06:47 Tear Drop Cells Not Reportable 10/20/18 06:47 Ovalocytes Few 10/20/18 06:47 Helmet Cells Not Reportable 10/20/18 06:47 [place] Bodies Not Reportable 10/20/18 06:47 [place] Rings Not Reportable 10/20/18 06:47 Patrick Cells Not Reportable 10/20/18 06:47 Bite Cells Not Reportable 10/20/18 06:47 Crenated Cell Not Reportable 10/20/18 06:47 Elliptocytes Not Reportable 10/20/18 06:47 Acanthocytes (Spur) Not Reportable 10/20/18 06:47 Rouleaux Not Reportable 10/20/18 06:47 Hemoglobin C Crystals Not Reportable 10/20/18 06:47 Schistocytes Not Reportable 10/20/18 06:47 Malaria parasites Not Reportable 10/20/18 06:47 Ricardo Bodies Not Reportable 10/20/18 06:47 Hem Pathologist Commnt No 10/20/18 06:47 PT 13.2 Sec. (12.2-14.9) 10/13/18 14:38 INR 0.96 (0.87-1.13) 10/13/18 14:38 APTT 24.4 Sec. (24.2-36.6) 10/13/18 14:38 Sodium 141 mmol/L (137-145) 10/20/18 05:49 Potassium 3.7 mmol/L (3.6-5.0) 10/20/18 05:49 Chloride 103.0 mmol/L (98-107) 10/20/18 05:49 Carbon Dioxide 23 mmol/L (22-30) 10/20/18 05:49 Anion Gap 19 mmol/L 10/20/18 05:49 BUN 5 mg/dL (7-17) L 10/20/18 05:49 Creatinine 1.0 mg/dL (0.7-1.2) 10/20/18 05:49 Estimated GFR > 60 ml/min 10/20/18 05:49 BUN/Creatinine Ratio 5 % 10/20/18 05:49 Glucose 168 mg/dL (65-100) H 10/20/18 05:49 Hemoglobin A1c 6.6 % (4-6) H 10/13/18 20:36 Calcium 9.1 mg/dL (8.4-10.2) 10/20/18 05:49 Magnesium 2.00 mg/dL (1.7-2.3) 10/13/18 14:38 Total Bilirubin 0.20 mg/dL (0.1-1.2) 10/20/18 05:49 AST 21 units/L (5-40) 10/20/18 05:49 ALT 22 units/L (7-56) 10/20/18 05:49 Alkaline Phosphatase 69 units/L (35-129) 10/20/18 05:49 Total Creatine Kinase 195 units/L (30-135) H 10/19/18 19:45 CK-MB (CK-2) 1.3 ng/mL (0.0-4.0) 10/19/18 19:45 CK-MB (CK-2) Rel Index 0.6 (0-4) 10/19/18 19:45 Troponin T < 0.010 ng/mL (0.00-0.029) 10/19/18 19:45 Total Protein 7.1 g/dL (6.3-8.2) 10/20/18 05:49 Albumin 3.6 g/dL (3.9-5) L 10/20/18 05:49 Albumin/Globulin Ratio 1.0 % 10/20/18 05:49 Lipase 13 units/L (13-60) 10/13/18 14:38 HCG, Quant 3.30 mIU/mL (0-4) 10/13/18 14:38 Urine Color Straw (Yellow) 10/17/18 14:45 Urine Turbidity Clear (Clear) 10/17/18 14:45 Urine pH 7.0 (5.0-7.0) 10/17/18 14:45 Ur Specific [place] 1.003 (1.003-1.030) 10/17/18 14:45 Urine Protein <15 mg/dl mg/dL (Negative) 10/17/18 14:45 Urine Glucose (UA) Neg mg/dL (Negative) 10/17/18 14:45 Urine Ketones Neg mg/dL (Negative) 10/17/18 14:45 Urine Blood Sm (Negative) 10/17/18 14:45 Urine Nitrite Neg (Negative) 10/17/18 14:45 Urine Bilirubin Neg (Negative) 10/17/18 14:45 Urine Urobilinogen < 2.0 mg/dL (<2.0) 10/17/18 14:45 Ur Leukocyte Esterase Neg (Negative) 10/17/18 14:45 Urine WBC (Auto) 1.0 /HPF (0.0-6.0) 10/17/18 14:45 Urine RBC (Auto) < 1.0 /HPF (0.0-6.0) 10/17/18 14:45 U Epithel Cells (Auto) 1.0 /HPF (0-13.0) 10/17/18 14:45 Urine Bacteria (Auto) 1+ /HPF (Negative) 10/17/18 14:45 Urine Mucus Few /HPF 10/13/18 13:49 Vancomycin Trough 14.3 ug/mL (5.0-20.0) 10/22/18 08:34 Blood Type O POSITIVE 10/13/18 14:38 Antibody Screen Negative 10/13/18 14:38 Nutrition/Malnutrition Assess - Dietary Evaluation Nutrition/Malnutrition Findings: Nutrition Notes Start: 10/22/18 14:34 Freq: Status: Active Protocol: Document 10/22/18 14:34 RM (Rec: 10/22/18 14:36 RM [id number]) Nutrition Notes Need for Assessment generated from: LOS Initial or Follow up Brief Note Other Pertinent Diagnosis Surgical abdominal wound, Acute appendicitis, Ileus, Aspiration Pneu Subjective/Other Information Pt screened for LOS. Pt in bathroom at time of visit. Nutrition Intervention Follow-Up By: 10/23/18 Additional Comments Follow for assessment
[2018-10-23] MEDS: NORCO 5/325 PO PRN ×4 (04:52→22:23)
[2018-10-23] MEDS: MAXIPIME/NS 2 GM/100 ML 2 GM/100 ML BAG IV SCH ×3 (05:05→21:59)
[2018-10-23] MEDS: TESSALON PERLES PO SCH ×3 (05:10→22:17)
[2018-10-23] MEDS: ZOFRAN IV PRN ×3 (09:15→18:33)
[2018-10-23] MEDS: SOLU-Medrol IV SCH (09:34)
[2018-10-23] MEDS: FLONASE NS SCH (09:35)
[2018-10-23] MEDS: PEPCID PO SCH ×2 (09:35→22:17)
[2018-10-23] MEDS: SODIUM CHLORIDE FLUSH SYRINGE 10 ML IV SCH ×2 (09:36→22:20)
[2018-10-23] MEDS: PULMICORT IH SCH ×2 (10:23→21:50)
[2018-10-23] MEDS: PROVENTIL IH SCH (10:23)
[2018-10-23] MEDS: BROVANA NEBU IH SCH ×2 (10:23→21:50)
--- NOTE | 2018-10-23 12:13 | Progress Note ---
Assessment and Plan Pt c/o nausea. Now wants CT of abd that she refused 2 days ago. Abd soft. will re-order CT also GI eval Objective Vital Signs - 12hr 10/23/18 10/23/18 10/23/18 07:25 10:25 10:35 Temperature 98.7 F Pulse Rate 49 L Respiratory 18 19 Rate Blood Pressure Blood Pressure 130/55 [Left] O2 Sat by Pulse 100 100 Oximetry 10/23/18 10/23/18 11:31 11:32 Temperature 98.4 F Pulse Rate 76 Respiratory 19 Rate Blood Pressure 113/74 Blood Pressure [Left] O2 Sat by Pulse Oximetry - Labs 10/20/18 09:40 10/20/18 05:49
[2018-10-23] MEDS: VANCOMYCIN 1,250 MG in NACL 0.9% 250ML 250 ML IV SCH ×2 (12:25→22:50)
--- NOTE | 2018-10-23 13:36 | Progress Note ---
Assessment and Plan 48 y/o female s/p ex-lap for appendicitis, now with cough and fever. 1. Will see PRN 2. Continue IS daily use while in house Subjective Date of service: 10/23/18 Principal diagnosis: acute appendicitis; abnormal ECG Interval history: Remains stable on room air but now nausea is back. Surgery ordering CT Objective Vital Signs - 12hr 10/23/18 10/23/18 10/23/18 07:25 10:25 10:35 Temperature 98.7 F Pulse Rate 49 L Respiratory 18 19 Rate Blood Pressure Blood Pressure 130/55 [Left] O2 Sat by Pulse 100 100 Oximetry 10/23/18 10/23/18 11:31 11:32 Temperature 98.4 F Pulse Rate 76 Respiratory 19 Rate Blood Pressure 113/74 Blood Pressure [Left] O2 Sat by Pulse Oximetry Constitutional: no acute distress Eyes: non-icteric ENT: oropharynx moist Neck: supple Effort: normal Ascultation: Bilateral: diminished breath sounds Cardiovascular: regular rate and rhythm Gastrointestinal: normoactive bowel sounds, soft Integumentary: normal Extremities: no cyanosis Neurologic: normal mental status CBC and BMP: 10/20/18 09:40 10/20/18 05:49 ABG, PT/INR, D-dimer: PT/INR, D-dimer PT 13.2 Sec. (12.2-14.9) 10/13/18 14:38 INR 0.96 (0.87-1.13) 10/13/18 14:38 Abnormal lab findings: Abnormal Labs 10/13/18 10/13/18 10/13/18 13:49 14:38 14:38 WBC RDW 15.4 H Plt Count Lymph % (Auto) 10.8 L [place] % (Auto) Lymph # 0.8 L Seg Neutrophils % 87.3 H Lymphocytes % (Manual) Seg Neutrophils # Seg Neutrophils # Man Lymphocytes # (Manual) Potassium BUN Glucose 145 H Hemoglobin A1c Total Creatine Kinase 235 H Albumin Urine pH 8.0 H 10/13/18 10/14/18 10/14/18 20:36 06:45 06:45 WBC RDW 15.3 H Plt Count 102 L Lymph % (Auto) [place] % (Auto) Lymph # Seg Neutrophils % Lymphocytes % (Manual) Seg Neutrophils # Seg Neutrophils # Man Lymphocytes # (Manual) Potassium BUN Glucose 115 H Hemoglobin A1c 6.6 H Total Creatine Kinase Albumin 3.8 L Urine pH 10/16/18 10/19/18 10/19/18 12:51 19:45 19:45 WBC 3.9 L RDW 15.8 H 15.4 H Plt Count Lymph % (Auto) [place] % (Auto) 8.6 H Lymph # 1.1 L Seg Neutrophils % Lymphocytes % (Manual) Seg Neutrophils # Seg Neutrophils # Man Lymphocytes # (Manual) Potassium 3.4 L BUN 3 L Glucose 113 H Hemoglobin A1c Total Creatine Kinase 195 H Albumin Urine pH 10/20/18 10/20/18 10/20/18 00:33 05:49 06:47 WBC 1.8 L* RDW Plt Count Lymph % (Auto) [place] % (Auto) Lymph # Seg Neutrophils % Lymphocytes % (Manual) 37.0 H Seg Neutrophils # Seg Neutrophils # Man 1.1 L Lymphocytes # (Manual) 0.7 L Potassium BUN 4 L 5 L Glucose 158 H 168 H Hemoglobin A1c Total Creatine Kinase Albumin 3.6 L Urine pH 10/20/18 09:40 WBC 2.4 L RDW Plt Count Lymph % (Auto) [place] % (Auto) 8.6 H Lymph # 0.8 L Seg Neutrophils % Lymphocytes % (Manual) Seg Neutrophils # 1.4 L Seg Neutrophils # Man Lymphocytes # (Manual) Potassium BUN Glucose Hemoglobin A1c Total Creatine Kinase Albumin Urine pH
--- NOTE | 2018-10-23 15:58 | Discharge Summary ---
Providers - Providers Date of Admission: 10/15/18 10:42 Attending physician: JIMBO KHANNA MD 10/13/18 Consult to Case Management [CONS] Routine Services Needed at Discharge: Home Health Services Notified:: PREPARATION DEPARTMENT SUPERVISOR 10/13/18 18:53 Consult to Physician [CONS] Urgent Comment: Consulting Provider: WU NGUYEN Physician Instructions: Reason For Exam: appendicitis 10/17/18 12:40 Consult to Physician [CONS] Routine Comment: Consulting Provider: KELSEY BULLARD Physician Instructions: Reason For Exam: persistent cough 10/20/18 15:15 Physical Therapy Evaluation and Treat [CONS] Routine Comment: Reason For Exam: ataxia 10/21/18 07:36 Physical Therapy Evaluation and Treat [CONS] Routine Comment: Reason For Exam: eval and treat Mode of Transport?: Wheelchair Primary care physician: SUPERVISOR FELLING BUCKING Hospitalization Condition: Good Hospital course: 48F with past medical history of MVP who pw RLQ pain. She was diagnosed with ac [place] appendicitis. She received appendectomy, she improved and her diet was advanced per general surgery. After which she developed coughing and postnasal drip, she was treated symptomatically. She was seen by cardiology for right bundle branch block, and he recommended conservative management. The patient received IV morphine and IV Dilaudid and had a very bad reaction to it, she had intractable nausea and vomiting. After she vomited she likely aspirated and developed aspiration pneumonia. She received abx and clinically improved -she was dc, and then refused, her diagnosis and prognosis were explained to her. She was cleared for discharge by general surgery, pulmonary and Cardiology doctor. But she adamantly refused to go home, she was seen by physical therapy and also cleared by her for discharge. She was then seen by Dir. of nursing and risk management after which she agreed to be discharged. Diagnoses Acute appendicitis Ileus, resolved elevated BP; due to acute illness, improving, cont to monitor RBB block. post nasal drip and cough, reactive airway disease; Aspiration pneumonia Sepsis Disposition: DC-01 TO HOME OR SELFCARE Time spent for discharge: 33 mins Core Measure Documentation - Palliative Care Palliative Care/ Comfort Measures: Not Applicable - Core Measures Any of the following diagnoses?: none Exam - Constitutional Vitals: Temp Pulse Resp BP Pulse Ox 98.4 F 76 19 113/74 100 10/23/18 11:32 10/23/18 11:31 10/23/18 11:32 10/23/18 11:32 10/23/18 10:25 General appearance: Present: no acute distress, well-nourished - EENT Eyes: Present: PERRL ENT: hearing intact, clear oral mucosa - Neck Neck: Present: supple, normal ROM - Respiratory Respiratory effort: normal Respiratory: bilateral: CTA - Cardiovascular Heart Sounds: Present: S1 & S2. Absent: rub, click - Extremities Extremities: pulses symmetrical, No edema Peripheral Pulses: within normal limits - Abdominal General gastrointestinal: Present: soft, non-tender, non-distended, normal bowel sounds Female genitourinary: Present: normal - Integumentary Integumentary: Present: clear, warm, dry - Musculoskeletal Musculoskeletal: gait normal, strength equal bilaterally - Psychiatric Psychiatric: appropriate mood/affect, intact judgment & insight - Neurologic Neurologic: CNII-XII intact, moves all extremities Plan Follow up with: PRIMARY CARE,MD [Primary Care Provider] - 3-5 Days Prescriptions: ALBUTEROL Inhaler(NF) [VENTOLIN Inhaler(NF)] 1 puff IH Q4H #1 inha Benzonatate [Tessalon Perles] 100 mg PO Q8HR #30 capsule Fluticasone [Flonase] 200 mcg NS QDAY #1 bottle guaiFENesin DM [Guaifenesin Dm Syrup] 20 ml PO Q4H PRN #120 ml PRN Reason: Cough levoFLOXacin [Levaquin] 750 mg PO QDAY 3 Days tablet Ondansetron [Zofran Odt] 4 mg PO Q8HR PRN #30 tab.rapdis PRN Reason: Nausea Prednisone [predniSONE 5 mg (6-Day Pack, 21 Tabs)] 5 mg PO .TAPER #1 tab.ds.pk Other Discharge Orders: [facility] (Amb) Location: None Selected
--- NOTE | 2018-10-23 19:14 | Cat Scan Report ---
FINAL REPORT EXAM: CT ABDOMEN PELVIS W CON HISTORY: abdominal pain and nausea sp lap appy TECHNIQUE: Following administration of GI and IV contrast axial helical imaging was performed throug h the abdomen and pelvis with sagittal and coronal reformatted images obtained. Delayed axial helical imaging was also performed through the abdomen and pelvis. Comparison: CT abdomen and pelvis dated October 13, 2018 FINDINGS: There are areas of pulmonary consolidation in the left lower lobe most consistent with pulmonary infi ltrate/pneumonia. The liver is notable for evidence of fatty infiltration/steatosis. The spleen, pancreas, kidneys and adrenal glands are unremarkable. The bowel is normal caliber. There is a moderate amount of stool in the distal transverse, descending and rectosigmoid colon. The appendix is absent. There is no evidence of pneumoperitoneum or free fluid. The abdominal aorta is normal caliber. There is no evidence of pathologic intra-abdominal adenopathy by CT size criteria. The urinary bladder is moderately distended and unremarkable. The uterus and adnexal are unremarkable. The bony structures are unremarkable. IMPRESSION: 1. Evidence of left lower lobe pulmonary infiltrate/pneumonia. 2. Moderate amount of stool in the distal transverse, descending and rectosigmoid colon. 3. The appendix is absent. 4. Evidence of fatty infiltration/steatosis of the liver.
[2018-10-24] MEDS: PROVENTIL IH SCH ×2 (01:53→09:03)
[2018-10-24] MEDS: TESSALON PERLES PO SCH (05:45)
[2018-10-24] MEDS: ZOFRAN IV PRN (05:46)
[2018-10-24] MEDS: MAXIPIME/NS 2 GM/100 ML 2 GM/100 ML BAG IV SCH (05:46)
[2018-10-24 08:19] VITALS: BP 145/83
[2018-10-24] MEDS: PULMICORT IH SCH (09:03)
[2018-10-24] MEDS: BROVANA NEBU IH SCH (09:03)
== END 2018-10-24 12:13 | disposition home or self-care (01) | DRG 853 ==
LOC: ED 12:34 → EDBD 19:16 → 3B-SURG 19:16 → OBSVTOIN 10-15 10:42
PROVIDERS: ADMIT Internal Medicine; ATTEND Internal Medicine
PROC: 0DTJ4ZZ Resection of Appendix, Percutaneous Endoscopic Approach (ICD-10-PCS; principal; 2018-10-13)
DX: A41.9 Sepsis, unspecified organism (principal); J69.0 Pneumonitis due to inhalation of food and vomit; K35.80 Unspecified acute appendicitis; K56.7 Ileus, unspecified; K21.9 Gastro-esophageal reflux disease without esophagitis; I10 Essential (primary) hypertension; I45.10 Unspecified right bundle-branch block; J98.01 Acute bronchospasm; Z98.51 Tubal ligation status; Z88.0 Allergy status to penicillin
CPT/HCPCS: 36415; 71046; 71275; 74018; 74022; 74177; 76705; 80048; 80053; 80202; 81001; 82550; 82553; 83036; 83690; 83735; 84484; 84702; 85007; 85025; 85027; 85610; 85730; 86850; 86900; 86901; 87040; 87075; 87076; 87116; 87186; 87400; 88304; 93005; 93010; 93306; 94640; 94760; 96361; 96374; 96375; G0378; J0330; J0456; J0692; J0696; J1170; J1956; J2185; J2270; J2310; J2405; J2704; J2710; J2765; J2920; J3010; J3370; J7030; J7040; J7050; J7120; Q9967